=== PATIENT | female | born 1955 | race Caucasian/White ===

== ENCOUNTER 2024-06-26 09:42 | Outpatient (CLI) | payer MEDICARE, OTHER, SELFPAY ==
--- NOTE | ~2024-06-26 | CT_ITS ---
EXAMINATION:CT lung screening DATE: 06/26/2024 10:11 INDICATION: Nicotine dependence. TECHNIQUE: Computed tomography (CT) of the chest was performed without intravenous contrast. Automate d exposure control and iterative reconstruction technique were employed. The dose-length product (DLP ) was 63.13 mGy-cm. COMPARISON: Chest CT 06/19/2023 FINDINGS: There is mild emphysema. There is stable mild scarring at the lung apices. There is a 2 mm nodule in left upper lobe. There is mild atelectasis bilaterally. No pleural effusion. The heart size is normal. There are coronary artery calcifications. No pericardial effusion. There are stones in th e kidneys measuring up to 3 mm. There is thoracic kyphosis and mild spondylosis. There is mild chroni c anterior wedging of multiple thoracic vertebral bodies. IMPRESSION: 1. Lung-RADS category 2: Benign appearance or behavior. Continue annual screening with noncontrast lo w-dose chest CT in 12 months. Reviewed, dictated and finalized at location A. IMPRESSION: 1. Lung-RADS category 2: Benign appearance or behavior. Continue annual screeni ng with noncontrast low-dose chest CT in 12 months.
--- OUTSIDE RECORDS SUMMARY | 2024-06-26 10:44 | XMS_ITS | Encounter Summary ---
Author Organization [facility] Address 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
--- OUTSIDE RECORDS SUMMARY | 2024-06-26 10:44 | XMS_ITS | Encounter Summary ---
Author Organization [employer] Address 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
--- OUTSIDE RECORDS SUMMARY | 2024-06-26 10:45 | XMS_ITS | Encounter Summary ---
Author Organization [employer] Address 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
--- OUTSIDE RECORDS SUMMARY | 2024-06-26 10:45 | XMS_ITS | Encounter Summary ---
Author Organization [facility] Address 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 Gender Identity Not on file Sexual Orientation Not on file documented as of this encounter Plan of Treatment Not on file documented as of this encounter Procedures Procedure Name Priority Date/Time Associated Diagnosis Comments MAMMO SCREENING BILAT Routine 01/16/2008 3:54 PM CDT documented in this encounter Results * MAMMO SCREENING BILAT (01/16/2008 3:54 PM CDT) Anatomical Region Laterality Modality Breast Bilateral Other 01/16/2008 3:54 PM CDT Narrative 01/19/2008 2:50 PM CDT [address] [place], [place] [address] Admit Date: 01/16/2008 CHERRI KWOK Sex: F Admit Prov: ANEL, GUMARO Date: 1955 Primary Care Prov: GUMARO TELLO CMRN: [id number] Room: [facility] SSN: [id number] IMAGING SERVICES Ordering Prov: GUMARO TELLO Accession Number: [id number] Interpretation BILATERAL SCREENING MAMMOGRAM 01/16/2008 Reason for Examination: Routine screening study. Findings: The parenchyma is moderately dense bilaterally. There is no mass, malignant calcification, lymphadenopathy or other sign of malignancy. There has been no change since 12/2005. Summary: No mammographic evidence of malignancy. Overall assessment: BIRADS category 1 - Negative. Assessment BIRADS: 1-Negative Recommendation: Normal interval follow-up Dictated by: REG GILMORE Electronically signed by: REG GILMORE 01/19/2008 14:50 Transcribed: 01/19/2008 14:25 SDJ Procedure Note Reg Gilmore MD - 01/19/2008 [facility] [address] [place], [place] [address] Admit Date: 01/16/2008 CHERRI KWOK Sex: F Admit Prov: GUMARO TELLO Date:1955 Primary Care Prov: NALLELY TELLOORES CMRN: [id number] Room: [facility] SSN: [id number] IMAGING SERVICES Ordering Prov: GMUARO TELLO Interpretation BILATERAL SCREENING MAMMOGRAM 01/16/2008 Reason for Examination: Routine screening study. Findings: The parenchyma is moderately dense bilaterally. There isno mass, malignant calcification, lymphadenopathy or other sign ofmalignancy. There has been no change since 12/2005. Summary: No mammographic evidence of malignancy. Overall assessment: BIRADS category 1 - Negative. Assessment BIRADS: 1-Negative Recommendation: Normal interval follow-up Dictated by: REG GILMORE Electronically signed by: REG GILMORE 01/19/2008 14:50 Transcribed: 01/19/2008 14:25 SDJ Gumaro Tello MD MAMMO ORDERABLES Final Resul t documented in this encounter Visit Diagnoses Diagnosis Other screening mammogram documented in this encounter Care Teams Jitterbug Operator Relationship Specialty Start Date End Date Gumaro Tello MD [address] [phone] PCP - General 03/18/15 documented as of this encounter
--- OUTSIDE RECORDS SUMMARY | 2024-06-26 10:45 | XMS_ITS | Data Portability ---
Author Organization [place] [facility], Main Office Address [address] [place] [address] Care Team Providers Care Market Developer Name Role Phone LUIS F OSBORN Primary Care Provider [phone] Assessment Encounter Date Assessment Date Assessment LastModified by Organization Details LastModified Time 07/16/2023 07/16/2023 68 yo F with - HTN - HLD - ANXIETY - GOITER - KYPHOSIS - SMOKER - H/O HYPERCALCEMIA LDCT chest: 06/19/23. Annual labs: 06/12/23. LDCT chest: 06/06/22. US thyroid: 06/06/22. Annual labs: 05/29/22. D/w pt in detail about her conditions, recent labs & imagines and further plan of care. MAWV questionnaire reviewed with pt. Answered all questions and concerns for the pt. Fall risk precautions explained. All meds verified with pt. Meds as directed. Diet and exercise explained in detail. BP diary education given and call us if any concerns. Encouraged pt to cut down and quit smoking. F/u with counsellor as per schedule. Cont f/u with GI as per schedule. Cont f/u with Ophtho as per schedule. Educated pt about alarming symptoms to monitor at home. Pt has tried Chantix and Wellbutrin in the past and got s/e from it. Pt did not like Setraline. HM: WWE - 8 yrs ago. Normal as per pt. Pt declined. Mammo - 03/07/23, normal. Colonoscopy - 2020, polyps ++. Cont f/u with GI as per schedule (5 yrs). DEXA - 07/12/22, osteoporosis ++. Flu - 12/22. Tdap - Pt declined. Pneumo - 12/19. Shingrix - At pharmacy/HD. F/u in 3-4 months. Annual labs, LDCT chest in 06/23. [email or web address] Not available 07/16/2023 15:53:56 10/15/2023 10/15/2023 68 yo F with - HTN - HLD - ANXIETY - GOITER - KYPHOSIS - SMOKER - H/O HYPERCALCEMIA LDCT chest: 06/19/23. Annual labs: 06/12/23. LDCT chest: 06/06/22. US thyroid: 06/06/22. Annual labs: 05/29/22. D/w pt in detail about her conditions, recent labs & imagines and further plan of care. [place] refer [place]mo[place] All meds verified with pt. Meds as directed. Diet and exercise explained in detail. BP diary education given and call us if any concerns. Encouraged pt to cut down and quit smoking. F/u with Pulmo as per schedule. F/u with counsellor as per schedule. Cont f/u with GI as per schedule. Cont f/u with Ophtho as per schedule. Educated pt about alarming symptoms to monitor at home. Pt has tried Chantix and Wellbutrin in the past and got s/e from it. Pt did not like Setraline. HM: WWE - 8 yrs ago. Normal as per pt. Pt declined. Mammo - 03/07/23, normal. Colonoscopy - 2020, polyps ++. Cont f/u with GI as per schedule (5 yrs). DEXA - 07/12/22, osteoporosis ++. Flu - 12/22. Tdap - Pt declined. Pneumo - 12/19. Shingrix - At pharmacy/HD. F/u in 3-4 months. Annual labs, LDCT chest in 06/23. [email or web address] Not available 10/15/2023 15:49:30 01/29/2024 01/29/2024 69 yo F with - HTN - HLD - ANXIETY - GOITER - KYPHOSIS - SMOKER - H/O HYPERCALCEMIA LDCT chest: 06/19/23. Annual labs: 06/12/23. LDCT chest: 06/06/22. US thyroid: 06/06/22. Annual labs: 05/29/22. D/w pt in detail about her conditions, recent labs & imagines and further [place] of care. [place] All meds verified with pt. Meds as directed. Diet and exercise explained in detail. BP diary education given and call us if any concerns. Encouraged pt to cut down and quit smoking. F/u with Pulmo as per schedule. F/u with counsellor as per schedule. Cont f/u with GI as per schedule. Cont f/u with Ophtho as per schedule. Educated pt about alarming symptoms to monitor at home. Pt has tried Chantix and Wellbutrin in the past and got s/e from it. Pt did not like Setraline. HM: WWE - 8 yrs ago. Normal as per pt. Pt declined. Mammo - 03/07/23, normal. Colonoscopy - 2020, polyps ++. Cont f/u with GI as per schedule (5 yrs). DEXA - 07/12/22, osteoporosis ++. Flu - Pt gets at pharmacy. Tdap - 2022. Pneumo - 12/19. Shingrix - At pharmacy/HD. F/u in 3-4 months. Annual labs, LDCT chest in 06/23. [email or web address] Not available 01/29/2024 12:10:29 04/30/2024 04/30/2024 69 yo F with - HTN, uncontrolled - HLD - ANXIETY - GOITER - KYPHOSIS - SMOKER - H/O HYPERCALCEMIA LDCT chest: 06/19/23. Annual labs: 06/12/23. LDCT chest: 06/06/22. US thyroid: 06/06/22. Annual labs: 05/29/22. D/w pt in detail about her conditions, recent labs & imagines and further [place] of care. [place] All meds verified with pt. Meds as directed. Diet and exercise explained in detail. BP diary education given and call us if any concerns. Encouraged pt to cut down and quit smoking. F/u with Pulmo as per schedule. F/u with counsellor as per schedule. Cont f/u with GI as per schedule. Cont f/u with Ophtho as per schedule. Educated pt about alarming symptoms to monitor at home. Pt has tried Wellbutrin in the past and got s/e from it. Pt did not like Sertraline. HM: WWE - 8 yrs ago. Normal as per pt. Pt declined. Mammo - 03/07/23, normal. Colonoscopy - 2020, polyps ++. Cont f/u with GI as per schedule (5 yrs). DEXA - 07/12/22, osteoporosis ++. Flu - Pt gets at pharmacy. Tdap - 2022. Pneumo - 12/19. Shingrix - At pharmacy/HD. F/u in 1.5 months. Annual labs, LDCT chest in 06/23. [email or web address] Not available 04/30/2024 12:32:44 06/16/2024 06/16/2024 69 yo F with - WELL ADULT VISIT - HTN, uncontrolled - HLD - ANXIETY - GOITER - KYPHOSIS - SMOKER - H/O HYPERCALCEMIA CT head wo: 05/24/24. LDCT chest: 06/19/23. Annual labs: 06/12/23. LDCT chest: 06/06/22. US thyroid: 06/06/22. Annual labs: 05/29/22. D/w pt in detail about her conditions, recent labs & imagines and further plan of care. Will do routine labs, LDCT chest. Will refer pt to Cardio. [place]. All meds verified with pt. Meds as directed. Diet and exercise explained in detail. BP diary education given and call us if any concerns. Encouraged pt to cut down and quit smoking. Educated pt about alarming symptoms to monitor at home. F/u with Cardio as per schedule. F/u with Pulmo as per schedule. F/u with counsellor as per schedule. Cont f/u with GI as per schedule. Cont f/u with Ophtho as per schedule. Offered to refer to Psych; but pt declined. Pt has tried Wellbutrin in the past and got s/e from it. Pt did not like Sertraline, Escitalopram. HM: WWE - 8 yrs ago. Normal as per pt. Pt declined. Mammo - 03/07/23, normal. Ordered. Colonoscopy - 2020, polyps ++. Cont f/u with GI as per schedule (5 yrs). DEXA - 07/12/22, osteoporosis ++. Flu - Pt gets at pharmacy. Tdap - 2022. Pneumo - 12/19. Shingrix - At pharmacy/HD. F/u in 2-3 weeks. Annual labs, LDCT chest in 06/24. [email or web address] Not available 06/16/2024 11:50:28 Plan of Treatment Reminders Order Date Submit Date Provider Last Modified By Organization Details Last Modified Time Details Appointments Any 15 2024 10:30A M Luis F Osborn MD Not available Not available Not available Lab HbA1c (hemoglob in A1c), blood 2024 025 [employer] [facility], [address], [address], [place], [address], 06/20/2024 00:35:02 CBC w/ auto diff 2024 025 [employer] [facility], [address], [place], [address], 06/20/2024 00:34:56 CMP, serum or plasma 2024 025 [employer] [facility], [facility] [address], [address], [place], [address], 06/20/2024 00:34:55 urinalysi s complete, reflex culture 2024 025 [employer] [facility], [facility] [address], [address], [place], [address], 06/20/2024 00:34:57 vitamin B12 + folate, serum or blood 2024 025 [employer] [facility], [facility] [address], [address], [place], [address], 06/20/2024 00:34:59 lipid panel, serum 2024 025 [employer] [facility], [address], [address], [place], [address], 06/20/2024 00:34:53 TSH, serum, reflex free T4 2024 025 [employer] [facility], [address], [address], [place], [address], 06/16/2024 11:37:02 vitamin D, 25-hydrox y, total, serum 2024 025 [employer] [facility], [address], [address], [place], [address], 06/20/2024 00:35:01 Referral cardiolog ist referral - Please call patient to schedule an appointme nt. Thank you 2024 025 [facility], [address], [address], [place], [address], 06/22/2024 16:45:28 [email or web address] gist referral - Please call patient to schedule an appointme nt. Thank you 2023 024 [email or web address] Ryan Lee MD, [address] [place], [address], 11/12/2023 08:33:38 Procedures None recorded. Surgeries None recorded. Imaging MAMMO, screening , bilateral 2024 025 [email or web address] [facility], [address], [place], [address], 06/16/2024 12:23:03 LDCT, chest, for lung cancer screening - Please call patient to schedule. 2024 025 [facility] ([facility]), [address] [place], [address], 06/16/2024 15:25:20 Medication Orders alendrona te 70 mg tablet 2024 025 [facility] #05160, [address], [place], [id number], 06/16/2024 11:36:37 lisinopri l 40 mg tablet 2024 025 [facility] #04974, [address], [place], [place], [id number], 06/16/2024 11:36:55 metoprolo l succinate ER 50 mg tablet,ex tended release 24 hr 2024 [email or web address] [facility] #87845, [address], [place], [place], [id number], 06/16/2024 11:36:42 clonidine HCl 0.1 mg tablet 2024 [facility] #93928, [address], [place], [place], [id number], 06/16/2024 11:36:36 atorvasta tin 40 mg tablet 2024 [facility] #59011, [address], [place], [place], [id number], 06/16/2024 11:36:54 varenicli ne tartrate 1 mg tablet 2024 025 [facility] #58455, [address], [place], [place], [id number], 06/16/2024 11:49:40 alendrona te 70 mg tablet 2024 025 [facility] #15638, [address], [place], [place], [id number], 04/30/2024 12:14:48 lisinopri l 40 mg tablet 2024 025 [facility] #33891, [address], [place], [place], [id number], 04/30/2024 12:14:56 metoprolo l succinate ER 50 mg tablet,ex tended release 24 hr 2024 025 [facility] #79969, [address], [place], [place], [id number], 04/30/2024 12:15:06 varenicli ne tartrate 0.5 mg tablet 2024 [facility] #70371, [address], [place], [place], [id number], 04/30/2024 12:14:54 lorazepam 0.5 mg tablet 2024 [facility] #80667, [address], [place], [place], [id number], 04/30/2024 12:15:15 bupropion HCl XL 150 mg 24 hr tablet, extended release [email or web address] [facility] #68318, [address], [place], [place], [id number], 06/16/2024 11:48:52 atorvasta tin 40 mg tablet 2024 [facility] #21324, [address], [place], [place], [id number], 04/30/2024 12:14:52 alendrona te 70 mg tablet 2023 024 [facility] #33419, [address], [place], [place], [id number], 01/29/2024 12:11:50 lisinopri l 40 mg tablet 2023 024 [facility] #62599, [address], [place], [place], [id number], 01/29/2024 12:11:58 metoprolo l succinate ER 25 mg tablet,ex tended release 24 hr [address] [facility] #72919, [address], [place], [place], [id number], 04/30/2024 12:18:04 varenicli ne tartrate 0.5 mg tablet 2023 024 [facility] #26536, [address], [place], [place], [id number], 01/29/2024 12:11:51 lorazepam 0.5 mg tablet 2023 [facility] #57621, [address], [place], [place], [id number], 01/29/2024 12:11:58 bupropion HCl XL 150 mg 24 hr tablet, extended release [address] [facility] #54502, [address], [place], [place], [id number], 06/16/2024 11:48:52 atorvasta tin 40 mg tablet 2023 024 [facility] #58278, [address], [place], [place], [id number], 01/29/2024 12:11:55 alendrona te 70 mg tablet 2023 024 [facility] #37667, [address], [place], [place], [id number], 10/15/2023 15:37:11 lisinopri l 40 mg tablet [address] [facility] #50077, [address], [place], [place], [id number], 10/15/2023 15:39:06 metoprolo l succinate ER 25 mg tablet,ex tended release 24 hr [address] [facility] #59790, [address], [place], [place], [id number], 04/30/2024 12:18:04 lorazepam 0.5 mg tablet 2023 [facility] #40993, [address], [place], [place], [id number], 10/15/2023 15:37:15 bupropion HCl XL 150 mg 24 hr tablet, extended release [address] [facility] #66288, [address], [place], [place], [id number], 06/16/2024 11:48:52 atorvasta tin 40 mg tablet 2023 [facility] #26626, [address], [place], [place], [id number], 10/15/2023 15:37:19 alendrona te 70 mg tablet 2023 [facility] #27764, [address], [place], [place], [id number], 07/16/2023 15:45:14 lisinopri l 40 mg tablet 2023 [facility] #68987, [address], [place], [place], [id number], 07/16/2023 15:46:01 metoprolo l succinate ER 25 mg tablet,ex tended release 24 hr [address] [facility] #80302, [address], [place], [place], [id number], 04/30/2024 12:18:04 escitalop belinda 5 mg tablet [address] [facility] #63629, [address], [place], [place], [id number], 06/16/2024 11:48:55 lorazepam 0.5 mg tablet 2023 024 [facility] #38428, [address], [place], [id number], 07/16/2023 15:47:40 atorvasta tin 40 mg tablet 2023 024 [facility] #82358, [address], [place], [place], [id number], 07/16/2023 15:45:16 Patient TargetsNo targets recorded. Patient Instructions Encounter Date Encounter Id Patient Instructions Last Modified By Organization Details Last Modified Time 07/16/2023 [id number] dementia rating scale-2* Not available 07/16/2023 16:00:17 depression screening* Not available 07/16/2023 16:00:59 alcohol misuse* Not available 07/16/2023 16:01:32 Personalized [facility] lt Plan and Screening Recommendations Advance Directives - Do you have one? Yes Advance Directives - Do we have your advance directive on file in your health record? Primary Prevention/Interven tion (prevents or decreases the chance of common diseases from occurring) Smoking Risk: Smoker Refer to attached smoking cessation handouts Refer to attached handouts and prescription will be sent to pharmacy Continue to consider stopping smoking and call if we can assist you Alcohol Misuse Screening: Negative Weight: Appropriate continue your current weight loss efforts Physical activity: Need more exercise/physical activity minimum of 10-20 minutes of activity that causes mild breathlessness/day minimum of 20-30 minutes activity that causes mild breathlessness/day Nutrition: Good Average Fall Risk (screened today): Low Vaccines Pneumococcal: Ordered Recommended today Recommended today, but you have declined No further needed Influenza: Your next one in the fall of this year Chronic Disease Risks Stroke: Low Risk Intermediate Risk I have no recommendations Act kelsey diagnosis, Continue current treatment plan Heart Attack: Low risk Intermediate Risk I have no recommendations Act kelsey diagnosis, Continue current treatment plan Clogging of the Arteries: Low risk Intermediate Risk I have no recommendations Act kelsey diagnosis, Continue current treatment plan Diabetes: Low Risk I have no recommendations Secondary Prevention/Interven tion (detects treatable diseases before they may cause symptoms, disability, or ) Breast Cancer Screening with mammogram: Cervical/Uterine/Ov renu Cancer Screening: No screening necessary Osteoporosis Screening: No screening necessary Date Screening Last Performed: 07/12/22 Colon Cancer Screening: Colonoscopy Date Screening Last Performed: 2020 Eye Disease Screening: No Eye exam necessary Dementia Risk: Low I have no recommendations Depression Screening: Negative Not available 07/16/2023 16:05:28 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 Thank you Referring Physician: Luis F Osborn [facility] Medicine, Encounter Date: 10/15/2023 Group Captain Referral for Hy pertensive disorder FH of CVD ++, uncontrolled HTN Please call patient to schedule an appointment. Thank you Referring Physician: Luis F Osborn [facility] Medicine, Encounter Date: 06/16/2024 Results Created Date Observation Date Name Description Value Unit Range Abnormal Flag Note LastModifiedBy Organization Detail LastModifiedTime 06/19/1906/19/2024 LIPID PANEL , STAND SPENCER cholesterol, total 139 mg/dL <200 normal Not Available [employer] [address] [address] [place], [address], 06/20/2024 00:34:53 06/19/19 25 06/19/2024 LIPID PANEL , STAND SPENCER HDL cholesterol 52 mg/dL > or = 50 normal Not Available [facility] [address] [address] [place], [address], 06/20/2024 00:34:53 06/19/19 25 06/19/2024 LIPID PANEL , STAND SPENCER triglyceride s 73 mg/dL <150 normal Not Available [employer] [address] [address] [place], [address], 06/20/2024 00:34:53 06/19/19 25 06/19/2024 LIPID PANEL , STAND SPENCER LDL-choleste rol 72 mg/dL _(mila c) normal Refer ence range : <100 Catarino able range <100 mg/dL for prima ry preve ntion ; <70 mg/dL for patie nts with CHD or diabe tic patie nts with > or = 2 CHD risk facto rs. LDL-C is now calcu lated using the Raquel n-Hop kins calcu esauomari n, which is a valid ated novel metho d provi ding leonela r accur acy than the Fried li equat ion in the estim ation of LDL-C . Raquel chang SS et al. MELANIE. 2013; 310(1 9): 2061- 2068 (http ://ed ucati on.Qu [employer]. com/f aq/FA Q164) Not Available [employer] [address] [address] [place], [address], 06/20/2024 00:34:53 06/19/19 25 06/19/2024 LIPID PANEL , STAND SPENCER chol/HDLC ratio 2.7 (calc ) <5.0 normal Not Available [facility] [address] [address] [place], [address], 06/20/2024 00:34:53 06/19/19 25 06/19/2024 LIPID PANEL , STAND SPENCER non HDL cholesterol 87 mg/dL _(mila c) <130 normal For patie nts with diabe kristine plus 1 major ASCVD risk facto r, treat ing to a non-H DL-C goal of <100 mg/dL (LDL- C of <70 mg/dL ) is consi dered a thera peutkika c optio n. Not Available [facility] [address] [address] [place], [address], 06/20/2024 00:34:53 06/19/19 25 06/19/2024 COMPR EHENS KELSEY METAB OLIC PANEL glucose 91 mg/dL 65-99 normal Fasti ng refer ence inter lucille Not Available [facility] [address] [address] [place], [address], 06/20/2024 00:34:55 06/19/19 25 06/19/2024 COMPR EHENS KELSEY METAB OLIC PANEL urea nitrogen (BUN) 18 mg/dL 7-25 normal Not Available [address], [address], 06/20/2024 00:34:55 06/19/19 25 06/19/2024 COMPR EHENS KELSEY METAB OLIC PANEL creatinine 0.94 mg/dL 0.60-1 .00 normal Not Available [address], [address], 06/20/2024 00:34:55 06/19/19 25 06/19/2024 COMPR EHENS KELSEY METAB OLIC PANEL eGFR 65 mL/mi n/1.7 3m2 > or = 60 normal Not Available [address], [address], 06/20/2024 00:34:55 06/19/19 25 06/19/2024 COMPR EHENS KELSEY METAB OLIC PANEL BUN/creatini ne ratio SEE NOTE: (calc ) 6-22 Not Repor sadiq: BUN and Creat inine are withi n refer ence range . Not Available [address], [address], 06/20/2024 00:34:55 06/19/19 25 06/19/2024 COMPR EHENS KELSEY METAB OLIC PANEL sodium 138 mmol/ L 135-14 6 normal Not Available [address], [address], 06/20/2024 00:34:55 06/19/19 25 06/19/2024 COMPR EHENS KELSEY METAB OLIC PANEL potassium 4.4 mmol/ L 3.5-5. 3 normal Not Available [address], [address], 06/20/2024 00:34:55 06/19/19 25 06/19/2024 COMPR EHENS KELSEY METAB OLIC PANEL chloride 103 mmol/ L 98-110 normal Not Available [address], [address], 06/20/2024 00:34:55 06/19/19 25 06/19/2024 COMPR EHENS KELSEY METAB OLIC PANEL carbon dioxide 29 mmol/ L 20-32 normal Not Available [address], [address], 06/20/2024 00:34:55 06/19/19 25 06/19/2024 COMPR EHENS KELSEY METAB OLIC PANEL calcium 10.4 mg/dL 8.6-10 .4 normal Not Available [address], [address], 06/20/2024 00:34:55 06/19/19 25 06/19/2024 COMPR EHENS KELSEY METAB OLIC PANEL protein, total 6.6 g/dL 6.1-8. 1 normal Not Available [address], [address], 06/20/2024 00:34:55 06/19/19 25 06/19/2024 COMPR EHENS KELSEY METAB OLIC PANEL albumin 4.3 g/dL 3.6-5. 1 normal Not Available [address], [address], 06/20/2024 00:34:55 06/19/19 25 06/19/2024 COMPR EHENS KELSEY METAB OLIC PANEL globulin 2.3 g/dL_ (calc ) 1.9-3. 7 normal Not Available [address], [address], 06/20/2024 00:34:55 06/19/19 25 06/19/2024 COMPR EHENS KELSEY METAB OLIC PANEL albumin/glob ulin ratio 1.9 (calc ) 1.0-2. 5 normal Not Available [address], [address], 06/20/2024 00:34:55 06/19/19 25 06/19/2024 COMPR EHENS KELSEY METAB OLIC PANEL bilirubin, total 0.6 mg/dL 0.2-1. 2 normal Not Available [address], [address], 06/20/2024 00:34:55 06/19/19 25 06/19/2024 COMPR EHENS KELSEY METAB OLIC PANEL alkaline phosphatase 66 U/L 37-153 normal Not Available [facility] [employer] [address], [address], 06/20/2024 00:34:55 06/19/19 25 06/19/2024 COMPR EHENS KELSEY METAB OLIC PANEL AST 24 U/L 10-35 normal Not Available [address], [address], 06/20/2024 00:34:55 06/19/19 25 06/19/2024 COMPR EHENS KELSEY METAB OLIC PANEL ALT 24 U/L 6-29 normal Not Available [address], [address], 06/20/2024 00:34:55 06/19/19 25 06/19/2024 CBC (INCL UDES DIFF/ PLT) white blood cell count 8.2 thous and/u L 3.8-10 .8 normal Not Available [address], [address], 06/20/2024 00:34:56 06/19/19 25 06/19/2024 CBC (INCL UDES DIFF/ PLT) red blood cell count 4.72 ana on/uL 3.80-5 .10 normal Not Available [address], [address], 06/20/2024 00:34:56 06/19/19 25 06/19/2024 CBC (INCL UDES DIFF/ PLT) hemoglobin 14.7 g/dL 11.7-1 5.5 normal Not Available [address], [address], 06/20/2024 00:34:56 06/19/19 25 06/19/2024 CBC (INCL UDES DIFF/ PLT) hematocrit 44.0 % 35.0-4 5.0 normal Not Available [address], [address], 06/20/2024 00:34:56 06/19/19 25 06/19/2024 CBC (INCL UDES DIFF/ PLT) MCV 93.2 fL 80.0-1 00.0 normal Not Available [address], [address], 06/20/2024 00:34:56 06/19/19 25 06/19/2024 CBC (INCL UDES DIFF/ PLT) MCH 31.1 pg 27.0-3 3.0 normal Not Available [address], [address], 06/20/2024 00:34:56 06/19/19 25 06/19/2024 CBC (INCL UDES DIFF/ PLT) MCHC 33.4 g/dL 32.0-3 6.0 normal For adult s, a sligh t decre ase in the calcu lated MCHC value (in the range of 30 to 32 g/dL) is most likel y not clini serena signi fican t; anne-marie er, it shoul d be inter prete d with cauti on in corre latio n with other red cell katherine eters and the patie nt's clini mila condi tion. Not Available [address], [address], 06/20/2024 00:34:56 06/19/19 25 06/19/2024 CBC (INCL UDES DIFF/ PLT) RDW 13.1 % 11.0-1 5.0 normal Not Available [address], [address], 06/20/2024 00:34:56 06/19/19 25 06/19/2024 CBC (INCL UDES DIFF/ PLT) platelet count 212 thous and/u L 140-40 0 normal Not Available [address], [address], 06/20/2024 00:34:56 06/19/19 25 06/19/2024 CBC (INCL UDES DIFF/ PLT) MPV 11.8 fL 7.5-12 .5 normal Not Available [address], [address], 06/20/2024 00:34:56 06/19/19 25 06/19/2024 CBC (INCL UDES DIFF/ PLT) absolute neutrophils 4305 cells /uL 1500-7 800 normal Not Available [address], [address], 06/20/2024 00:34:56 06/19/19 25 06/19/2024 CBC (INCL UDES DIFF/ PLT) absolute lymphocytes 2960 cells /uL 850-39 00 normal Not Available [address], [address], 06/20/2024 00:34:56 06/19/19 25 06/19/2024 CBC (INCL UDES DIFF/ PLT) absolute monocytes 779 cells /uL 200-95 0 normal Not Available [address], [address], 06/20/2024 00:34:56 06/19/19 25 06/19/2024 CBC (INCL UDES DIFF/ PLT) absolute eosinophils 82 cells /uL 15-500 normal Not Available [address], [address], 06/20/2024 00:34:56 06/19/19 25 06/19/2024 CBC (INCL UDES DIFF/ PLT) absolute basophils 74 cells /uL 0-200 normal Not Available [address], [address], 06/20/2024 00:34:56 06/19/19 25 06/19/2024 CBC (INCL UDES DIFF/ PLT) neutrophils 52.5 % normal Not Available [address], [address], 06/20/2024 00:34:56 06/19/19 25 06/19/2024 CBC (INCL UDES DIFF/ PLT) lymphocytes 36.1 % normal Not Available [address], [address], 06/20/2024 00:34:56 06/19/19 25 06/19/2024 CBC (INCL UDES DIFF/ PLT) monocytes 9.5 % normal Not Available [address], [address], 06/20/2024 00:34:56 06/19/19 25 06/19/2024 CBC (INCL UDES DIFF/ PLT) eosinophils 1.0 % normal Not Available [address], [address], 06/20/2024 00:34:56 06/19/19 25 06/19/2024 CBC (INCL UDES DIFF/ PLT) basophils 0.9 % normal Not Available [address], [address], 06/20/2024 00:34:56 06/19/19 25 06/19/2024 URINA LYSIS , COMPL ETE W/REF LUC TO CULTU RE color DARK YELLOW yellow normal Not Available [address], [address], 06/20/2024 00:34:57 06/19/19 25 06/19/2024 URINA LYSIS , COMPL ETE W/REF LUC TO CULTU RE appearance CLEAR clear normal Not Available [address], [address], 06/20/2024 00:34:57 06/19/19 25 06/19/2024 URINA LYSIS , COMPL ETE W/REF LUC TO CULTU RE specific gravity 1.019 1.001- 1.035 normal Not Available [address], [address], 06/20/2024 00:34:57 06/19/19 25 06/19/2024 URINA LYSIS , COMPL ETE W/REF LUC TO CULTU RE pH 5.5 5.0-8. 0 normal Not Available [address], [address], 06/20/2024 00:34:57 06/19/19 25 06/19/2024 URINA LYSIS , COMPL ETE W/REF LUC TO CULTU RE glucose NEGATI VE negati ve normal Not Available [address], [address], 06/20/2024 00:34:57 06/19/19 25 06/19/2024 URINA LYSIS , COMPL ETE W/REF LUC TO CULTU RE bilirubin NEGATI VE negati ve normal Not Available [address], [address], 06/20/2024 00:34:57 06/19/19 25 06/19/2024 URINA LYSIS , COMPL ETE W/REF LUC TO CULTU RE ketones TRACE negati ve abnormal Not Available [address], [address], 06/20/2024 00:34:57 06/19/19 25 06/19/2024 URINA LYSIS , COMPL ETE W/REF LUC TO CULTU RE occult blood TRACE negati ve abnormal Not Available [address], [address], 06/20/2024 00:34:57 06/19/19 25 06/19/2024 URINA LYSIS , COMPL ETE W/REF LUC TO CULTU RE protein NEGATI VE negati ve normal Not Available [address], [address], 06/20/2024 00:34:57 06/19/19 25 06/19/2024 URINA LYSIS , COMPL ETE W/REF LUC TO CULTU RE nitrite NEGATI VE negati ve normal Not Available [address], [address], 06/20/2024 00:34:57 06/19/19 25 06/19/2024 URINA LYSIS , COMPL ETE W/REF LUC TO CULTU RE leukocyte esterase 1+ negati ve abnormal Not Available [address], [address], 06/20/2024 00:34:57 06/19/19 25 06/19/2024 URINA LYSIS , COMPL ETE W/REF LUC TO CULTU RE WBC NONE SEEN /hpf < or = 5 normal Not Available [address], [address], 06/20/2024 00:34:57 06/19/19 25 06/19/2024 URINA LYSIS , COMPL ETE W/REF LUC TO CULTU RE RBC 3-10 /hpf < or = 2 abnormal Not Available [address], [address], 06/20/2024 00:34:57 06/19/19 25 06/19/2024 URINA LYSIS , COMPL ETE W/REF LUC TO CULTU RE squamous epithelial cells 0-5 /hpf < or = 5 Not Available [address], [address], 06/20/2024 00:34:57 06/19/19 25 06/19/2024 URINA LYSIS , COMPL ETE W/REF LUC TO CULTU RE bacteria NONE SEEN /hpf none seen normal Not Available [facility] [address], [address], 06/20/2024 00:34:57 06/19/19 25 06/19/2024 URINA LYSIS , COMPL ETE W/REF LUC TO CULTU RE hyaline cast 0-5 /lpf none seen abnormal Not Available [facility] [address], [address], 06/20/2024 00:34:57 06/19/19 25 06/19/2024 URINA LYSIS , COMPL ETE W/REF LUC TO CULTU RE note This urine was jacques zed for the prese nce of WBC, RBC, bacte gail, casts , and other forme d eleme nts. Only those eleme nts seen were repor sadiq. Not Available [address], [address], 06/20/2024 00:34:57 06/19/19 25 06/19/2024 REFLE XIVE URINE CULTU RE reflexive urine culture CULTU RE INDIC ATED - RESUL TS TO FOLLO W Not Available [address], [address], 06/20/2024 00:34:59 06/19/19 25 06/19/2024 VITAM IN B12/F OLATE , SERUM PANEL vitamin B12 330 pg/mL 200-11 00 normal Pleas e Note: Altho ugh the refer ence range for vitam in B12 is 200-1 100 pg/mL , it has been repor sadiq that betwe en 5 and 10% of patie nts with value s betwe en 200 and 400 pg/mL may exper ience neuro psych iatri c and hemat ologi c abnor malit ies due to occul t B12 defic iency ; less than 1% of patie nts with value s above 400 pg/mL will have sympt oms. Not Available [facility] [address] [place], [address], 06/20/2024 00:34:59 06/19/19 25 06/19/2024 VITAM IN B12/F OLATE , SERUM PANEL folate, serum 9.8 NG/mL normal Refer ence Range Low: <3.4 Borde rline : 3.4-5 .4 Oksana l: >5.4 Not Available [facility] [address] [place], [address], 06/20/2024 00:34:59 06/19/1906/19/2024 TSH W/REF LUC TO FT4 TSH w/reflex to FT4 2.34 mIU/L 0.40-4 .50 normal Not Available [facility] [address] [address] [place], [address], 06/20/2024 00:35:00 06/19/1906/19/2024 VITAM IN D,25- OH,TO JP,I A vitamin D,25-oh,tota l,ia 54 NG/mL 30-100 normal Vitam in D Statu s 25-OH Vitam in D: Defic iency : <20 ng/mL Insuf ficie ncy: 20 - 29 ng/mL Optim al: > or = 30 ng/mL For 25-OH Vitam in D testi ng on patie nts on D2-chavez pplem entat ion and patie nts for whom quant itati on of D2 and D3 fract ions is requi red, the [facility](TM ) 25-OH VIT D, (D2,D 3), LC/MS /MS is recom nilda d: order code 77259 (remi ents >2yrs ). See Note 1 Note 1 For addit ional infor lan lin refer to http: //ely Rya stDia gnost ics.c om/fa q/FAQ 199 (This link is being provi ded for infor jolie owrkman/ educa stanislav l purpo ses only. ) Not Available [facility] [address] [address] [address] , [place], [address], 06/20/2024 00:35:01 06/19/19 25 06/19/2024 HEMOG LOBIN A1C hemoglobin A1C 5.6 %_of_ total _HGB <5.7 normal For the purpo se of screandrew acostag for the prese nce of diabe kristine: <5.7% Consi stent with the absen ce of diabe kristine 5.7-6 .4% Consi stent with incre ased risk for diabe kristine (pred iabet es) > or =6.5% Consi stent with diabe kristine This assay resul t is consi stent with a decre ased risk of diabe kristine. Curre ntly, no conse nsus exist s regar gladys use of hemog lobin A1c for diagn osis of diabe kristine in child jaziel. Accor ding to Ameri can Diabe kristine Assoc iatio n (ADA) guide lines , hemog lobin A1c <7.0% repre sents optim al contr ol in non-p regna nt diabe tic patie nts. Diffe rent metri cs may apply to speci fic patie nt popul ation s. Stand ards of Medic al Care in Diabe kristine(A DA). Not Available [facility] [address] [address] [address], [place], [address], 06/20/2024 00:35:02 06/19/19 25 06/19/2024 CULTU RE, URINE , ROUTI NE culture, urine, routine SEE NOTE CULTU RE, URINE , ROUTI NE Micro Numbe r: [id number] Test Statu s: Final Speci men Sourc e: Urine Speci men Quali ty: Adequ ate Resul t: No Growt h Not Available [facility] [address], [place], [address], 06/20/2024 00:35:03 06/19/19 24 06/19/2023 LDCT, chest , for lung cance r scree estevan No observ ation record ed. [email or web address] [place] [address] [address], [place], [address], 07/16/2023 15:33:46 06/19/19 24 06/19/2023 LDCT, chest , for lung cance r scree estevan No observ ation record ed. [address], [place], [address], 07/16/2023 15:33:46 05/24/19 25 05/24/2024 imagi ng/di agnos tic resul t No observ ation record ed. [address], [place], [address], 06/16/2024 11:28:39 05/24/19 25 05/24/2024 CT, head, w/o contr ast No observ ation record ed. [address], [place], [address], 06/16/2024 11:28:39 Result Notes None recorded. Problems Name Problem SNOMED Code Status Onset Date Resolution Date Notes Provider Name and Address Organization Details Recorded Time Otalgia 02871406 Active Not Available [facility] 3 11:52:26 Anxiety disorder 442660312 Active 2022 Not Available [facility] 3 11:52:27 Localized, primary osteoarthr itis of the shoulder region 726528372 Active 2021 Not Available [facility] 3 11:52:27 Feeling stressed 820832131 Completed Not Available [facility] 3 05:58:14 Fluid level behind tympanic membrane Completed Not Available [facility] 3 05:58:14 Flank pain 607944678 Active Not Available [facility] 3 11:52:27 Osteopenia 861369109 Active 2017 Not Available [facility] 3 11:52:27 Blood in urine 49194302 Completed Not Available [facility] 3 05:58:14 Vitamin D deficiency 06268163 Active 2019 Not Available [facility] 3 11:52:27 Goiter 8600774 Active 2022 Not Available [facility] 3 11:52:27 Hypertensi ve disorder 07678002 Active Not Available [facility] 3 11:52:27 Anxiety 52935825 Active Not Available [facility] 3 11:52:27 Hyperlipid emia 95733232 Active Not Available [facility] 3 11:52:27 Hypercalce haydee 28522109 Active 2021 Not Available [facility] 3 11:52:27 Appendicit is 43013799 Completed Not Available [facility] 3 05:58:15 Posterior rhinorrhea 67937058 Active Not Available [facility] 3 11:52:27 Smoker 77994835 Active 2020 Not Available [facility] 3 11:52:27 Fatigue 86753973 Completed Not Available [facility] 3 05:58:15 Osteoporos is 77617115 Active 2022 Not Available [facility] 3 11:52:27 Pulmonary emphysema 02994844 Active 2023 Luis F Osborn MD [address], [place], [address] , [facility] 4 15:36:22 Cigarette smoker 33345652 Active 2024 Luis F Osborn MD [address], [place], [address] , [facility] 5 11:38:57 Problem Notes None recorded. Procedures Surgical History Date Name Laterality Status Provider Name and Address Organization Details Recorded Time 06/17/19 25 Smoking Cessation completed Luis F Osborn MD [address], [place], [address], [facility] 06/16/2024 11:51:04 04/30/19 25 Smoking Cessation completed Luis F Osborn MD [address], [place], [address], [facility] 04/30/2024 11:33:02 01/29/20 24 Smoking Cessation completed Luis F Osborn MD [address], [place], [address], [facility] 01/29/2024 12:42:03 10/15/19 24 Smoking Cessation completed Luis F Osborn MD [address], [address], [place], [address], [facility] 10/15/2023 15:35:49 07/16/19 24 Medicare Wellness CPT Code, Initial completed June HODAN An [place] [facility] 07/16/2023 15:04:30 01/31/20 23 Smoking Cessation completed Luis F Osborn MD [address], [address], [place], [address], [facility] 01/30/2023 10:49:10 08/31/19 23 Smoking Cessation completed Luis F Osborn MD [address], [place], [address], [facility] 08/30/2022 10:50:29 07/13/19 23 Smoking Cessation completed Luis F Osborn MD [address], [place], [address], [facility] 07/12/2022 15:05:43 04/01/19 21 Date of Last Colonoscopy completed Not Available [facility] 05/30/2022 05:53:22 Tubal Ligation completed Not Available [facility] 05/30/2022 05:53:24 Appendectomy completed Not Available [facility] 05/30/2022 05:53:24 Imaging Results Imaging Date Name Status LastModified by Organiz ation Details LastModified Time 06/19/2023 LDCT, chest, for lung cancer screening completed [address], [address], 07/16/2023 15:33:46 06/19/2023 LDCT, chest, for lung cancer screening completed [address], [place], [address], 07/16/2023 15:33:46 05/24/2024 imaging/diagno stic result completed [address], [place], [address], 06/16/2024 11:28:39 05/24/2024 CT, head, w/o contrast completed [address], [place], [address], 06/16/2024 11:28:39 Procedure Notes None recorded. Medical Equipment None Reported. Allergies No known drug allergies Medications Name Sig Start Date Stop Date Status Note LastModified by Organization Details LastModified Time atorvastati n 40 mg tablet Take 1 tablet every day by oral route at bedtime for 90 days. 2024 active Not Available Not Available Not Avai lable hydrocodone 7.5 mg-ibuprofe n 200 mg tablet active Not Available Not Available Not Available bupropion HCl SR 150 mg tablet,12 hr sustained-r elease Take 1 tablet twice a day by oral route for 90 days. active Not Available Not Available No t Available clonidine HCl 0.1 mg tablet Take 1 tablet twice a day by oral route as directed for 90 days. 2024 active Not Available Not Available Not Avai lable atorvastati n 20 mg tablet TAKE 1 TABLET BY MOUTH EVERY NIGHT AT BEDTIME 01/30 completed Not Available Not Available Not Available atorvastati n 10 mg tablet TK 1 T PO QD 10/11 completed Not Available Not Available Not Available lisinopril 20 mg-hydrochl orothiazide 12.5 mg tablet TK 1 T PO QAM active Not Available Not Available No t Available metoprolol succinate ER 50 mg tablet,exte nded release 24 hr Take 1 tablet every day by oral route as directed for 90 days. 2024 active Not Available Not Available Not Avai lable lisinopril 20 mg tablet TAKE 1 TABLET BY MOUTH EVERY DAY DIRECTED QAM 08/30 completed Not Available Not Available Not Available prednisone 20 mg tablet 08/11 completed Not Available Not Available Not Available alendronate 70 mg tablet Take 1 tablet every week by oral route as directed. 2024 active Not Available Not Available Not Avai lable amlodipine 5 mg tablet TAKE 1 TABLET BY MOUTH EVERY DAY 09/18 completed Not Available Not Available Not Available ciprofloxac in 500 mg tablet Take 1 tablet every 12 hours by oral route. active Not Available Not Available No t Available sulfamethox azole 800 mg-trimetho prim 160 mg tablet active Not Available Not Available Not Available peg-electro lyte solution 420 gram oral solution 10/11 completed Not Available Not Available Not Available amoxicillin 875 mg tablet TAKE 1 TABLET BY MOUTH EVERY 12 HOURS 03/01 completed Not Available Not Available Not Available lorazepam 0.5 mg tablet TAKE 1 TABLET BY MOUTH ONCE DAILY NEEDED active Not Available Not Available No t Available methocarbam ol 750 mg tablet Take 1 tablet every day by oral route at bedtime for 10 days. active Not Available Not Available No t Available lisinopril 10 mg tablet TAKE 1 TABLET BY MOUTH EVERY DAY 07/12 completed Not Available Not Available Not Available nicotine 21 mg/24 hr daily transdermal patch APPLY ONE PATCH TO SKIN ONCE DAILY FOR 90 DAYS 07/12 completed Not Available Not Available Not Available lisinopril 30 mg tablet TAKE 1 TABLET BY MOUTH EVERY DAY DIRECTED 01/30 completed Not Available Not Available Not Available lisinopril 20 mg-hydrochl orothiazide 25 mg tablet active Not Available Not Available Not Available metoprolol succinate ER 25 mg tablet,exte nded release 24 hr TAKE 1 TABLET BY MOUTH EVERY DAY AT BEDTIME 04/30 completed Not Available Not Available Not Available ergocalcife rol (vitamin D2) 1,250 mcg (50,000 unit) capsule TAKE 1 CAPSULE BY MOUTH EVERY WEEK active Not Available Not Available No t Available cefuroxime axetil 500 mg tablet 11/22 completed Not Available Not Available Not Available methylpredn isolone 4 mg tablets in a dose pack FOLLOW PACKAGE DIRECTION S 02/01 completed Not Available Not Available Not Available lisinopril 40 mg tablet Take 1 tablet every day by oral route as directed for 90 days. 2024 active Not Available Not Available Not Avai lable fluticasone propionate 50 mcg/actuati on nasal spray,suspe nsion INHALE 2 SPRAYS INTO EACH NOSTRIL QAM active Not Available Not Available No t Available sertraline 50 mg tablet Take 1 tablet every day by oral route in the morning for 90 days. 06/04 completed Not Available Not Available Not Available ipratropium bromide 21 mcg (0.03 %) nasal spray 10/11 completed Not Available Not Available Not Available amoxicillin 875 mg-potassiu m clavulanate 125 mg tablet 08/11 completed Not Available Not Available Not Available nicotine 7 mg/24 hr daily transdermal patch Apply 1 patch every day by transderm al route as directed for 30 days. 06/04 completed Not Available Not Available Not Available neomycin-po lymyxin-hyd rocort 3.5 mg-10,000 unit/mL-1 % ear drops,susp INSTILL 4 DROPS INTO AFFECTED EAR(S) BY OTIC ROUTE 3 TIMES PER DAY FOR 7 DAYS active Not Available Not Available No t Available escitalopra m 10 mg tablet Take 1 tablet every day by oral route as directed for 30 days. active Not Available Not Available No t Available bupropion HCl XL 150 mg 24 hr tablet, extended release Take 1 tablet every day by oral route as directed for 90 days. 06/16 completed Not Available Not Available Not Available escitalopra m 5 mg tablet Take 1 tablet every day by oral route in the morning for 90 days. 06/16 completed Not Available Not Available Not Available varenicline tartrate 1 mg tablet Take 1 tab po twice a day after food. 2024 active Not Available Not Available Not Avai lable varenicline tartrate 0.5 mg tablet TAKE 1 TABLET BY MOUTH TWICE DAILY DIRECTED active Not Available Not Available No t Available hydrochloro thiazide 12.5 mg tablet Take 1 tablet every day by oral route as directed for 90 days. active Not Available Not Available No t Available naproxen 500 mg-esomepra zole 20 mg tablet,imme diate and delay release TAKE 1 TABLET BY MOUTH TWICE DAILY WITH MEALS FOR 10 DAYS 10/11 completed Not Available Not Available Not Available Suprep Bowel Prep Kit 17.5 gram-3.13 gram-1.6 gram oral solution DILUTE AND DRINK FULL AMOUNT BY MOUTH EARLY EVENING BEFORE AND NEXT MORNING AT LEAST 2 HOURS BEFORE PROCEDURE . FOLLOW WITH 960 ML WATER 04/25 completed Not Available Not Available Not Available Fluvirin 7671-8670 (PF) 45 mcg(15 mcg x3)/0.5 mL intramuscul ar syringe ADM 0.5ML IM UTD 08/12 completed Not Available Not Available Not Available Flucelvax Quad (PF) 60 mcg (15 mcg x 4)/0.5 mL IM syringe ADM 0.5ML IM UTD 08/11 completed Not Available Not Available Not Available ID NOW COVID-19 Test Kit TEST DIRECTED 09/18 completed Not Available Not Available Not Available Vitals Date Recorded Body height Body mass index (BMI) Body weight Body temperature Heart rate Respiratory rate Oxygen saturation Oxygen saturation in Arterial blood by Pulse oximetry Systolic blood pressure Diastolic blood pressure Provider Name and Address Organization Details Last Updated DateTime 4 160.02 cm 20.7 kg/m2 28478.0 1 g 97.9 [degF] 78 /min 20 /min 99 % 99 % 128 mm[Hg] 70 mm[Hg] Jono Segovia [email or web address] [facility] 4 15:27:09 Date Recorded Pain severity - 0-10 verbal numeric rating [Score] - Reported Provider Name and Address Organization Details Last Updated DateTime 07/16/2023 0 June HODAN An [email or web address] [facility] 07/16/2023 15:56:12 Date Recorded Body height Body mass index (BMI) Body weight Body temperature Heart rate Respiratory rate Oxygen saturation Oxygen saturation in Arterial blood by Pulse oximetry Provider Name and Address Organization Details Last Updated DateTime 4 160.02 cm 21.8 kg/m2 21176.5 6 g 97.9 [degF] 78 /min 16 /min 99 % 99 % Jono Segovia [employer] [facility] 4 15:27:13 Date Recorded Systolic blood pressure Diastolic blood pressure Provider Name and Address Organization Details Last Updated DateTime 10/15/2023 136 mm[Hg] 80 mm[Hg] Luis F Osborn MD [address] [place] [address], [facility] [address], [place], [address], [place] [facility] 10/15/2023 15:28:33 Date Recorded Body height Body mass index (BMI) Body weight Body temperature Heart rate Provider Name and Address Organization Details Last Updated DateTime 01/29/2024 160.02 cm 21.7 kg/m2 94915.67 g 97.9 [degF] 62 /min Clary Martin RN [facility] 11:58:25 Date Recorded Oxygen saturation Oxygen saturation in Arterial blood by Pulse oximetry Systolic blood pressure Diastolic blood pressure Provider Name and Address Organization Details Last Updated DateTime 01/29/2024 97 % 97 % 140 mm[Hg] 70 mm[Hg] Luis F Osborn MD [address], [place], [address], [email or web address] [facility] 12:07:58 Date Recorded Body height Body mass index (BMI) Body weight Body temperature Oxygen saturation Oxygen saturation in Arterial blood by Pulse oximetry Heart rate Provider Name and Address Organization Details Last Updated DateTime 5 160.02 cm 22.2 kg/m2 61074.1 g 96.9 [degF] 96 % 96 % 81 /min Clary Martin RN [facility] 11:59:31 Date Recorded Systolic blood pressure Diastolic blood pressure Provider Name and Address Organization Details Last Updated DateTime 04/30/2024 160 mm[Hg] 100 mm[Hg] Luis F Osborn MD [address], [place], [address], [place] [email or web address] [facility] 04/30/2024 12:31:50 Date Recorded Body height Body mass index (BMI) Body weight Body temperature Oxygen saturation Oxygen saturation in Arterial blood by Pulse oximetry Heart rate Provider Name and Address Organization Details Last Updated DateTime 5 160.02 cm 22 kg/m2 95018.1 5 g 97.2 [degF] 97 % 97 % 60 /min Clary Martin RN [facility] [employer] 11:20:02 Date Recorded Systolic blood pressure Diastolic blood pressure Systolic blood pressure Diastolic blood pressure Provider Name and Address Organization Details Last Updated DateTime 06/16/2024 180 mm[Hg] 104 mm[Hg] 156 mm[Hg] 84 mm[Hg] Rima Osborn MD [address], [facility] [address], [place], [address] , [email or web address] [facility] 11:46:13 Social History Question Answer Notes LastModified by Organizat ion Details LastModified Time Tobacco Smoking Status Current Every Day Smoker Angelic Puentesmargot sofia, [email or web address] [facility] 08/30/2022 10:52:39 Do You Have An Advance Directive? Yes [id number] Information not available 05/30/2022 What Is Your Level Of Alcohol Consumption? None [id number] Information not available 05/30/2022 Are You Blind Or Do You Have Difficulty Seeing? No Wears 1 Contact In Right Eye Information not available 08/30/2022 What Is Your Level Of Caffeine Consumption? Heavy 6 Cups Of Coffee Per Day [email or web address] Information not available 06/16/2024 How Much Tobacco Do You Chew? None [id number] Information not available 05/30/2022 What Is Your Code Status? Full Code Information not available 08/30/2022 Are You Deaf Or Do You Have Serious Difficulty Hearing? No Information not available 08/30/2022 What Type Of Diet Are You Following? REGULAR [id number] Information not available 05/30/2022 Which Illicit Or Recreational Drugs Have You Used? None Information not available 08/30/2022 Do You Or Have You Ever Used E-cigarettes Or Vape? 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 Yes POA: Jose Martin Carrero Information not available 08/30/2022 What Was The Date Of Your Most Recent Tobacco Screening? 07/16/2023 Information not available 07/16/2023 What Is Your Current Pack Years? 30ormorepacky ears [email or web address] Information not available 06/16/2024 At What Age Did You Start Smoking Tobacco? 21 Information not available 08/30/2022 Do You Or Have You Ever Used Smokeless Tobacco? Former Smokeless Tobacco User [id number] Information not available 05/30/2022 How Much Tobacco Do You Smoke? 1 PPD Actually 3/4 Pack Of Day [email or web address] Information not available 06/16/2024 Do You Feel Stressed (tense, Restless, Nervous, Or Anxious, Or Unable To Sleep At Night)? [id number] Anxiety From Coming To The [place] [facility] Information not available 06/05/2023 Do You Use Any Illicit Or Recreational Drugs? No [email or web address] Information not available 06/16/2024 How Many Years Have You Smoked Tobacco? 50 [email or web address] Information not available 06/16/2024 Do You Have Any Dietary Restrictions? No Information not available 08/30/2022 Do You Or Have You Ever Used Any Other Forms Of Tobacco Or Nicotine? No [email or web address] Information not available 06/16/2024 How Many Years Have You Used Smokeless Tobacco? 1 Actually Only A Couple Months If That. [email or web address] Information not available 06/16/2024 Sex: Unknown Functional Status Question Answer Note LastModified by Organizat ion Details LastModified Time Do you have difficulty walking or climbing stairs? No Information not available 08/30/2022 Do you have transportation difficulties? No Information not available 08/30/2022 Are you able to walk? YESWOREST Information not available 08/30/2022 Do you have difficulty doing errands alone? No Information not available 08/30/2022 Are you able to care for yourself? Yes Information n ot available 08/30/2022 Do you have difficulty dressing or bathing? No Information not available 08/30/2022 What is your exercise level? Moderate [id number] Information not available 05/30/2022 Mental Status Question Answer Note LastModified by Organization D etails LastModified Time Do you have difficulty concentrating, remembering or making decisions? No Information no t available 08/30/2022 Family History Relationship Description Onset Age of this Age Resolved Age Notes LastModified by Organization Details LastModified Time Father Cardiopulmon sanchez bypass operation [id number] Not available 05/30/2022 05:53:25 Medical History Condition Response BRONCHITIS Y URINARY/BLADDER/KIDNEY PROBLEMS Y PNEUMONIA Y HIGH CHOLESTEROL / HYPERLIPIDEMIA Y Gynecological History Statement/Question Response Date of Last Mammogram 11/13/2021 Date of Last Colonoscopy 04/01/2020 Date of LMP Obstetrics History GPAL:G 0 P 0 0 0 0 Immunizations Vaccine Type Date Status Note Provider Nam e and Address Organization Details Recorded Time influenza, unspecified formulation 3 completed Luis F Osborn MD [address], [address], [place], [address], [employer] [employer] 01/30/2023 11:36:07 Influenza, high-dose, quadrivalent, PF 3 completed Luis F Osborn MD [address], [address], [place], [address], [facility] 01/30/2023 11:36:07 COVID-19, mRNA, LNP-S, PF, 50 mcg/0.5 mL 3 completed Lusi F Osborn MD [address], [address], [place], [address], [facility] 01/30/2023 11:36:07 Influenza, split virus, trivalent, preservative 5 completed Luis F Osborn MD [address], [address], [place], [address], [facility] 01/30/2023 11:36:07 Influenza, split virus, quadrivalent, preservative 1 completed Luis F Osborn MD [address], [address], [place], [address], [facility] 01/30/2023 11:36:07 Influenza, split virus, quadrivalent, preservative 0 completed Luis F Osborn MD [address], [address], [place], [address], [employer] 01/30/2023 11:36:07 pneumococcal polysaccharide PPV23 0 completed Luis F Osborn MD [address], [address], [place], [address], [facility] [email or web address] [facility] 01/30/2023 11:36:07 Influenza, split virus, quadrivalent, preservative 9 completed Luis F Osborn MD [address], [address], [place], [address], [employer] [facility] [employer] 01/30/2023 11:36:07 Influenza, split virus, trivalent, preservative 4 completed Luis F Osborn MD [address], [place], [address], [employer] [facility] 01/30/2023 11:36:07 Influenza, split virus, trivalent, preservative 3 completed Luis F Osborn MD [address], [place], [address], [employer] [facility] [employer] 01/30/2023 11:36:07 Influenza, split virus, quadrivalent, PF 6 completed Luis F Osborn MD [address], [place], [address], [employer] [facility] [employer] 01/30/2023 11:36:07 Past Encounters Encounter ID Performer Location Encounter Start Date Encounter Closed Date Diagnosis/Indication Diagnosis SNOMED-CT Code Diagnosis ICD10 Code Diagnosis Note [id number] [facility] [address] [place] [address] 10/11/2020 00:00:00 10/11/2020 08:54:36 [id number] [facility] [address] [place] [address] 03/01/2021 00:00:00 03/01/2021 13:51:35 [id number] [facility] [place] [address] 04/25/2021 00:00:00 04/25/2021 09:53:29 [id number] [facility] [place] [address], [place] [address] 09/18/2021 00:00:00 09/18/2021 10:18:58 [id number] [facility] [place] [address] [place] [address] 11/23/2021 00:00:00 11/23/2021 10:19:13 [id number] [facility] [place] [address] [place] [address] 02/01/2022 00:00:00 02/01/2022 14:21:[id number] [address] 05/28/2022 00:00:00 05/28/2022 10:21:44 [id number] Luis F Osborn MD [address] [address] 06/13/2022 10:28:57 06/13/2022 11:20:12 Hypertensive disorder 61170303 I10 Hyperlipidemia 45449687 E78.5 Smoker 74960732 F17.200 Anxiety disorder F41.9 [id number] Luis F Osborn MD [address] [address] 07/12/2022 14:52:31 07/12/2022 15:19:10 Hypertensive disorder 55293703 I10 Smoker 50271930 F17.200 Anxiety disorder F41.9 [id number] Luis F Osborn MD [address] [address] 08/30/2022 10:50:06 08/30/2022 11:14:43 Anxiety disorder 404536912 F41.9 Hypertensive disorder 38 035306 I10 Smoker 19497093 F17.200 Hyperlipidemia 11646653 E78.5 Osteoporosis 34543502 M8 1.0 [id number] Luis F Osborn MD [address] [address] 01/30/2023 10:46:30 01/30/2023 11:59:38 Hyperlipidemia 15354510 E78.5 Hypertensive disorder 38 061430 I10 Anxiety disorder 1807255 06 F41.9 Osteoporosis 98237299 M8 1.0 Smoker 75300471 F17.339 [id number] Luis F Osborn MD [address] [address] 02/27/2023 10:11:14 02/27/2023 10:33:17 Hyperlipidemia 94699592 E78.5 Hypertensive disorder 38 117816 I10 Anxiety disorder 5438218 06 F41.9 Osteoporosis 37419886 M8 1.0 Smoker 26579950 F17.789 [id number] Luis F Osborn MD [address] [address] 06/05/2023 12:16:03 06/05/2023 13:57:00 Hypertensive disorder 47239425 I10 Anxiety disorder 3929938 06 F41.9 Hyperlipidemia 91240050 E78.5 Osteoporosis 26293645 M8 1.0 Smoker 66711392 F17.200 Diabetes m ellitus screening 784988953 Z13.1 Vitamin D deficiency 347 54821 E55.9 [id number] Luis F Osborn MD [address] [address] 07/16/2023 15:18:51 07/16/2023 16:34:56 Screening for disorder 210555284 Z13.9 Hypertensive disorder 38 704273 I10 Anxiety disorder 2384041 06 F41.9 Hyperlipidemia 29923081 E78.5 Osteoporosis 32952405 M8 1.0 Smoker 36897573 F17.200 Vitamin D deficiency 347 67305 E55.9 Improved [id number] Luis F Osborn MD [address] [address] 10/15/2023 15:21:30 10/15/2023 15:53:19 Hypertensive disorder 14673524 I10 Anxiety disorder 9853672 06 F41.9 Hyperlipidemia 88949133 E78.5 Osteoporosis 37618280 M8 1.0 Smoker 50297549 F17.200 Vitamin D deficiency 347 14061 E55.9 Improved Pulmonary emphysema 8743 3001 J43.9 [id number] Luis F Osborn MD [address] [address] 01/29/2024 11:48:28 01/29/2024 13:00:14 Anxiety disorder 859784942 F41.9 Hyperlipidemia 15731875 E78.5 Hypertensive disorder 38 576462 I10 Osteoporosis 59820234 M8 1.0 Smoker 43965590 F17.200 Vitamin D deficiency 347 06409 E55.9 Improved Pulmonary emphysema 8743 3001 J43.9 [id number] Luis F Osborn MD [address] [address] 04/30/2024 11:50:37 04/30/2024 12:22:27 Anxiety disorder 539680033 F41.9 Hyperlipidemia 76121889 E78.5 Hypertensive disorder 38 569039 I10 Osteoporosis 18114557 M8 1.0 Vitamin D deficiency 347 26907 E55.9 Improved Smoker 29234614 F17.200 Pulmonary emphysema 8743 3001 J43.9 [id number] Luis F Osborn MD [address] [address] 06/16/2024 11:01:12 06/16/2024 12:23:02 Anxiety disorder 489478478 F41.9 Hyperlipidemia 15697565 E78.5 Hypertensive disorder 38 302419 I10 Osteoporosis 56433149 M8 1.0 Vitamin D deficiency 347 39315 E55.9 Improved Pulmonary emphysema 8743 3001 J43.9 Cigarette smoker 5515926 7 F17.210 Screening mammography 24 455434 Z12.31 Health Concerns Section Related Observation LastModified by Organization Detai ls LastModified Time None Recorded Concern Status LastModified by Organization Details LastModified Time None Recorded Advance Directives Directive Y: Payers Encounter Date Sequence Insurance Name Policy Number Policy Aguero Covered Member ID Aguero Member ID Guarantor Name 07/16/2023 1 [place] Cherri Lopez [id number] 3 Cherri Chávez Jessica 07/16/2023 2 [employer] - OPEN ACCESS PLUS [id number] Cherri Lopez [id number] Cherri Chávez Jessica 10/15/2023 1 [place] Cherri Chávez Jessica [id number] Chreri Chávez Jessica 10/15/2023 2 [employer] - OPEN ACCESS PLUS [id number] Cherri Chávez Jessica [id number] Cherri Chávez Jessica 01/29/2024 1 [place] Cherri Chávez Jessica [id number] Cherri Chávez Jessica 01/29/2024 2 [employer] - OPEN ACCESS PLUS [id number] Cherri Chávez Jessica [id number] Cherri Chávez Jessica 04/30/2024 1 [place] Cherri Chávez Jessica [id number] Cherri Chávez Jessica 04/30/2024 2 [employer] - OPEN ACCESS PLUS [id number] Cherri Chávez Jessica [id number] Cherri Chávez Jessica 06/16/2024 1 [place]MEDICARE[place] Cherri Chávez Jessica [id number] Cherri Chávez Jessica 06/16/2024 2 [employer] - OPEN ACCESS PLUS [id number] Cherri Chávez Jessica [id number] Cherri Lopez Notes Date Note Type Note Provider Name and Address Organization Details Recorded Time 07/16/2023 text/html Pt is here for f/u on her annual exam and MAWV. Doing overall better. Denies any problem with meds. Denies any new concern. Pt's dog is not doing well and she is under some stress due to that. Pt is not checking her BP at home yet.She has anxiety is improved overall. Pt denies any depression/mood swings/SI/HI. Pt has not seen a counsellor yet. Luis F Osborn MD [address] [place] [address], [facility] [address], [place], [address], [facility] 07/16/2023 16:31:07 10/15/2023 text/html Pt is here for f/u on her meds and chronic conditions. Doing overall better. Denies any problem with meds. Denies any new concern. Pt's dog is not doing well and she is under some stress due to that. Pt is not checking her BP at home yet.She has anxiety is improved overall. Pt denies any depression/mood swings/SI/HI. Pt has not seen a counsellor yet. Luis F Osborn MD [address], [place], [address], [employer] [facility] 10/15/2023 15:50:01 01/29/2024 text/html Pt is here for f/u on her meds and chronic conditions. Doing overall better. Denies any problem with meds. Denies any new concern. Pt's dog is not doing well and she is under some stress due to that. Pt is not checking her BP at home yet.She has anxiety is improved overall. Pt denies any depression/mood swings/SI/HI. Pt has not seen a counsellor yet. Pt has not seen Pul[facility] yet. Luis F Osborn MD [address] [facility], [place], [address], [employer] [facility] 01/29/2024 12:42:47 04/30/2024 text/html Pt is here for f/u on her meds and chronic conditions. Doing overall better. Denies any problem with meds. Denies any new concern. Pt's dog is not doing well and she is under some stress due to that. Pt is not checking her BP at home yet.She has anxiety is improved overall. Pt denies any depression/mood swings/SI/HI. Pt has not seen a counsellor yet. Pt has not seen Pulmo yet. Luis F Osborn MD [address] [facility], [place], [address], [employer] [facility] 04/30/2024 12:33:35 06/16/2024 text/html Pt is here for her annual exam. Doing overall better. Denies any problem with meds. Denies any new concern. Pt's dog was not doing well and it was placed under sleep last week. So pt is under stress due to that. Pt is checking her BP at home and its in 150/90 range.She has anxiety is improved overall. Pt denies any depression/mood swings/SI/HI. Pt did not tolerate Bupropion and so she stopped it. Pt has not seen a counsellor yet. Pt has not seen Pulmo yet. Luis F Osborn MD [address] [place] [address], [facility] [address], [place], [address], [place] [facility] [employer] 06/16/2024 11:51:31 OBGyn Episode No OBEpisode recorded.
--- OUTSIDE RECORDS SUMMARY | 2024-06-26 10:45 | XMS_ITS | Encounter Summary ---
Author Organization [employer] Address 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
--- OUTSIDE RECORDS SUMMARY | 2024-06-26 10:45 | XMS_ITS | Clinical Summary ---
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 Gender Identity Not on file Sexual Orientation Not on file Occupation Industry Job Start Date Job End Date Not on file Not on file Not on file Not on file Plan of Treatment Health Maintenance Due Date Last Done Comments DTAP/TDAP/TD VACCINES (1 - Tdap) 1973 COLORECTAL SCREENING 1999 Colorectal Cancer Screening 1999 FIT-DNA Q 3 years 1999 FIT/FOBT Q 1 year 1999 Flex Sig/CT Colonography Q 5 years 1999 PNEUMOCOCCAL VACCINE 50+ YEA RS (1 of 1 - PCV) 01/26/2004 ZOSTER VACCINE (1 of 2) 01/26/2004 BREAST CANCER SCREENING 01/13/2016 01/13/20 15, 01/08/2014, 02/16/2013, Additional history exists OSTEOPOROSIS SCREENING 2019 INFLUENZA VACCINE (#1) 2023 RSV VACCINE (60+ or ) (1 - 1-dose 75+ series) 2029 Procedures Procedure Name Priority Date/Time Associated Diagnosis Comments MAMMO SCREEN BILAT W OR WO CAD Routine 01/12/2015 11:00 AM CDT Visit for screening mammogram from Last 3 Months or Most Recently Relevant to Health Maintenance Results * MAMMO DIGITAL SCREEN BILAT (01/12/2015 11:00 AM CDT) Anatomical Region Laterality Modality Breast Bilateral Mammography Narrative 01/13/2015 9:48 AM CDT Bilateral digital screening mammogram with computer assisted diagnosis History: Annual screening exam. Findings: A bilateral screening mammogram was performed. Comparison is made to : 01/08/2014, 02/16/2013, 02/14/2012 There are scattered fibroglandular densities. No new masses, suspicious calcifications, or areas of asymmetry or distortion are identified. CAD was utilized. Impression: Negative screening mammogram. Recommendation: Routine annual follow-up Overall Assessment: Birads Category 1: Negative us Rissa Tello MD MAMMO ORDERABLES Final Resul t from Last 3 Months or Most Recently Relevant to Health Maintenance Insurance Bleacher Report OPEN ACCESS HMO Care Teams Ticket Dispenser Changer Relationship Specialty Start Date End Date Rissa Tello MD [address] [address] PCP - General 03/18/15
--- OUTSIDE RECORDS SUMMARY | 2024-06-26 10:45 | XMS_ITS | Continuity of Care Document ---
Author Organization [facility] Address [address] [facility] [address] [place] [address] Phone Care Team Providers Care Designer Writer Name Role Phone Bolivar OD, Adriel Unavailable Unavailable Advance Directives Directive Yes / No Effective Date File Name No Information Encounters Encounter Description Practice Location Reason(s) For Visit Diagnoses Date Provider Providers Copied on Encounter [facility], [address], [place], [place], [id number], [place] tel:[phone] [facility] No Information 0-200 4 Bolivar OD Adriel. [address], [place], [address], [place]. tel:[phone] Family History Family Member Type Diagnosis Age At Onset No Information Payers Payer name Insurance type Covered republican ID Authoriza tion(s) No Information Social History Type Description Quantity Date Captured Comments Sex Female Smoking Status No Information Chief Complaint And Reason For Visit No Information Reason For Referral Reason For Referral No Information History Of Present Illness Encounter Date Complaint History Of Prese nt Illness No Information Functional Status Date Functional Assessmen t No Information Instructions Date Instruction Additional Infor mation No Information Assessments Type Assessment Date No Information Patient Care Teams Name Effective Dates (start - stop) Status Members No Information
== END 2024-06-26 09:43 | disposition home or self-care (01) ==
PROVIDERS: PCP Family Medicine; Visit Provider Family Medicine
DX: Z12.2 Encounter for screening for malignant neoplasm of respiratory organs (principal); Z87.891 Personal history of nicotine dependence
CPT/HCPCS: 71271

== ENCOUNTER 2024-07-24 09:26 | Outpatient (CLI) | payer MEDICARE, OTHER, SELFPAY ==
--- NOTE | ~2024-07-24 | XR_ITS ---
Supine and upright views of the abdomen Clinical history: Renal stone Findings: Bowel gas pattern is nonspecific. No evidence for obstruction or free air. No abnormal mass lesion or calcification is seen. Osseous structures are intact. Impression: No significant abnormality is seen. Reviewed, dictated and finalized at [facility]. Impression: No significant abnormality is seen.
--- OUTSIDE RECORDS SUMMARY | 2024-07-24 09:38 | XMS_ITS | Encounter Summary ---
Author Organization [employer] Address 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
--- OUTSIDE RECORDS SUMMARY | 2024-07-24 09:39 | XMS_ITS | Encounter Summary ---
Author Organization [facility] Address 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
--- OUTSIDE RECORDS SUMMARY | 2024-07-24 09:39 | XMS_ITS | Encounter Summary ---
Author Organization [facility] Address 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
--- OUTSIDE RECORDS SUMMARY | 2024-07-24 09:39 | XMS_ITS | Continuity of Care Document ---
Author Organization [facility] Address [address] [facility] [address] [place] [address] Phone Care Team Providers Care New Car Get Ready Mechanic Name Role Phone Bolivar OD, Adriel Unavailable Unavailable Advance Directives Directive Yes / No Effective Date File Name No Information Encounters Encounter Description Practice Location Reason(s) For Visit Diagnoses Date Provider Providers Copied on Encounter [facility], [address], [place], [place], [id number], [place] tel:[phone] [facility] No Information 0-200 4 Bolivar OD Adriel. [address], [place], [address], [place]. tel:[phone] Family History Family Member Type Diagnosis Age At Onset No Information Payers Payer name Insurance type Covered libertarian ID Authoriza tion(s) No Information Social History [...]
--- OUTSIDE RECORDS SUMMARY | 2024-07-24 09:39 | XMS_ITS | Data Portability ---
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 Annual labs, LDCT chest in 06/23. [email or web address] Not available 10/15/2023 15:49:30 01/29/2024 01/29/2024 69 [...] months. Annual labs, LDCT chest in 06/23. [email or web address] Not available 01/29/2024 12:10:29 04/30/2024 04/30/2024 69 [...] months. Annual labs, LDCT chest in 06/23. [email or web address] Not available 04/30/2024 12:32:44 06/16/2024 06/16/2024 69 [...] weeks. Annual labs, LDCT chest in 06/24. [email or web address] Not available 06/16/2024 11:50:28 07/07/2024 07/07/2024 69 yo F with - MICROSCOPIC HEMATURIA, new - B/L KIDNEY STONE, new - HTN, improved - HLD - ANXIETY - EMPHYSEMA, mild - GOITER - KYPHOSIS - SMOKER - H/O HYPERCALCEMIA LDCT chest: 06/26/24. Annual labs: 06/18/24. CT head wo: 05/24/24. LDCT chest: 06/19/23. Annual labs: 06/12/23. LDCT chest: 06/06/22. US thyroid: 06/06/22. Annual labs: 05/29/22. D/w pt in detail about her conditions, recent labs & imagines and further plan of care. Will refer pt [place]ro. [place]. All meds verified with pt. Meds as directed. Diet and exercise explained in detail. BP diary education given and call us if any concerns. Encouraged pt to cut down and quit smoking. Educated pt about alarming symptoms to monitor at home. F/u with Uro as per schedule. F/u with Cardio as per schedule. F/u [...] osteoporosis ++. Flu - Pt gets at her pharmacy. Tdap - 2022. Pneumo - 12/19. Shingrix - At pharmacy/HD. F/u in 2 months. Annual labs, LDCT chest in 06/24. [email or web address] Not available 07/07/2024 11:56:48 Plan of Treatment Reminders Order Date Submit Date Provider Last Modified By Organization Details Last Modified Time Details Appointments Follow Up 15 2024 10:30A M Luis F Osborn MD Not available Not available Not available Lab HbA1c (hemoglob in A1c), blood 2024 025 [facility], [address], [place], [address], 06/20/2024 00:35:02 CBC w/ auto diff 2024 025 [facility], [address], [address], [place], [address], 06/20/2024 00:34:56 CMP, serum or plasma 2024 025 [facility], [address], [address], [place], [address], 06/20/2024 00:34:55 urinalysi s complete, reflex culture 2024 025 [facility], [address], [address], [place], [address], 06/20/2024 00:34:57 vitamin B12 + folate, serum or blood 2024 025 [facility], [address], [address], [place], [address], 06/20/2024 00:34:59 lipid panel, serum 2024 025 [facility] [facility], [address], [place], [address], 06/20/2024 00:34:53 TSH, serum, reflex free T4 2024 025 [email or web address] [facility], [address], [place], [address], 07/16/2024 11:09:34 vitamin D, 25-hydrox y, total, serum 2024 025 [email or web address], [address], [place], [address], 06/20/2024 00:35:01 Referral urologist referral - Kidney stones on LDCT chest findings, microscop ic hematuria ++ Please call patient to schedule an appointme nt. Thank you. 2024 025 [facility], [address], [address], [place], [address], 07/13/2024 19:35:13 cardiolog ist referral - Please call patient to schedule an appointme nt. Thank you 2024 025 [facility], [address], [address], [place], [address], 07/13/2024 17:20:36 [email or web address] gist referral - Please call patient to schedule an appointme nt. Thank you 2023 024 [email or web address] Ryan Lee MD, [address] [place], [address], 11/12/2023 08:33:38 Procedures None recorded. Surgeries None recorded. Imaging MAMMO, screening , bilateral 2024 025 [email or web address], [address], [place], [address], 07/02/2024 15:34:56 LDCT, chest, for lung cancer screening - Please call patient to schedule. [address] ([facility]), [address], [place], [address], 06/28/2024 16:12:24 Medication Orders alendrona te 70 mg tablet 2024 [facility] #82065, [address] [facility], [place], [place], [id number], 07/07/2024 11:49:52 lisinopri l 40 mg tablet 2024 025 [facility] #88484, [address], [place], [id number], 07/07/2024 11:49:52 metoprolo l succinate ER 50 mg tablet,ex tended release 24 hr 2024 025 [facility] #05881, [address], [place], [id number], 07/07/2024 11:49:51 clonidine HCl 0.1 mg tablet [address] [facility]27719, [address], [place], [id number], 07/07/2024 11:50:40 lorazepam 0.5 mg tablet 2024 025 [facility] #76069, [address], [place], [id number], 07/07/2024 11:49:54 atorvasta tin 40 mg tablet 2024 025 [facility] #01131, [address], [place], [id number], 07/07/2024 11:49:53 alendrona te 70 mg tablet 2024 [facility] #02476, [address] [facility], [place], [place], [id number], 06/16/2024 11:36:37 lisinopri l 40 mg tablet 2024 [facility] #01516, [address] [facility], [place], [place], [id number], 06/16/2024 11:36:55 metoprolo l succinate ER 50 mg tablet,ex tended release 24 hr 2024 [email or web address] [facility] #08715, [address] [facility], [place], [place], [id number], 06/16/2024 11:36:42 clonidine HCl 0.1 mg tablet 2024 [facility] #55098, [address] [facility], [place], [place], [id number], 06/16/2024 11:36:36 atorvasta tin 40 mg tablet 2024 [facility] #97836, [address] [facility], [place], [place], [id number], 06/16/2024 11:36:54 varenicli ne tartrate 1 mg tablet 2024 [facility] #38419, [address] [facility], [place], [place], [id number], 06/16/2024 11:49:40 alendrona te 70 mg tablet 2024 [facility] #33559, [address] [facility], [place], [place], [id number], 04/30/2024 12:14:48 lisinopri l 40 mg tablet 2024 025 [facility] #77276, [address] [facility], [place], [place], [id number], 04/30/2024 12:14:56 metoprolo l succinate ER 50 mg tablet,ex tended release 24 hr 2024 025 [facility] #19185, [address] [facility], [place], [place], [id number], 04/30/2024 12:15:06 varenicli ne tartrate 0.5 mg tablet [address] [facility] #40296, [address] [facility], [place], [place], [id number], 07/07/2024 11:54:08 lorazepam 0.5 mg tablet 2024 025 [facility] #82030, [address] [facility], [place], [place], [id number], 04/30/2024 12:15:15 bupropion HCl XL 150 mg 24 hr tablet, extended release [address] [facility] #76765, [address] [facility], [place], [place], [id number], 06/16/2024 11:48:52 atorvasta tin 40 mg tablet 2024 025 [facility] #35970, [address] [facility], [place], [place], [id number], 04/30/2024 12:14:52 alendrona te 70 mg tablet 2023 024 [facility] #51933, [address] [facility], [place], [place], [id number], 01/29/2024 12:11:50 lisinopri l 40 mg tablet 2023 [facility] #30361, [address] [facility], [place], [place], [id number], 01/29/2024 12:11:58 metoprolo l succinate ER 25 mg tablet,ex tended release 24 hr [address] [facility] #27648, [address] [facility], [place], [place], [id number], 04/30/2024 12:18:04 varenicli ne tartrate 0.5 mg tablet [address] [facility] #76199, [address] [facility], [place], [place], [id number], 07/07/2024 11:54:08 lorazepam 0.5 mg tablet 2023 [facility] #76953, [address] [facility], [place], [place], [id number], 01/29/2024 12:11:58 bupropion HCl XL 150 mg 24 hr tablet, extended release [address] [facility] #24515, [address] [facility], [place], [place], [id number], 06/16/2024 11:48:52 atorvasta tin 40 mg tablet 2023 [facility] #76331, [address] [facility], [place], [place], [id number], 01/29/2024 12:11:55 alendrona te 70 mg tablet 2023 [facility] #42294, [address] [facility], [place], [place], [id number], 10/15/2023 15:37:11 lisinopri l 40 mg tablet [address] [facility] #22745, [address] [facility], [place], [place], [id number], 10/15/2023 15:39:06 metoprolo l succinate ER 25 mg tablet,ex tended release 24 hr [address] [facility] #10844, [address], [place], [id number], 04/30/2024 12:18:04 lorazepam 0.5 mg tablet 2023 024 [facility] #29202, [address], [place], [id number], 10/15/2023 15:37:15 bupropion HCl XL 150 mg 24 hr tablet, extended release [address] [facility] #50135, [address] [facility], [place], [place], [id number], 06/16/2024 11:48:52 atorvasta tin 40 mg tablet 2023 024 [facility] #18630, [address], [place], [id number], 10/15/2023 15:37:19 Patient TargetsNo targets recorded. Patient InstructionsNo instructions recorded. Reason for Referral [employer] Referral for P ulmonary emphysema Please call patient to schedule an appointment. 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 Thank you Referring Physician: Luis F Osborn [facility], Encounter Date: 06/16/2024 Urologist Referral for Micro scopic hematuria Kidney stones on LDCT chest findings, microscopic hematuria ++ Kidney stones on LDCT chest findings, microscopic hematuria ++ Please call patient to schedule an appointment. Thank you. Referring Physician: Luis F Osborn, Family Medicine, Encounter Date: 07/07/2024 Results Created Date Observation Date Name Description Value Unit Range Abnormal Flag Note LastModifiedBy Organization Detail LastModifiedTime 06/19/1906/19/2024 LIPID PANEL , STAND SPENCER cholesterol, total 139 mg/dL <200 normal Not Available [facility] [address], [address], 06/20/2024 00:34:53 06/19/19 25 06/19/2024 LIPID PANEL , STAND SPENCER HDL cholesterol 52 mg/dL > or = 50 normal Not Available [facility] [address], [address], 06/20/2024 00:34:53 06/19/19 25 06/19/2024 LIPID PANEL , STAND SPENCER triglyceride s 73 mg/dL <150 normal Not Available [facility] [address] [address] [place], [address], 06/20/2024 00:34:53 06/19/1906/19/2024 LIPID PANEL , STAND SPENCER LDL-choleste rol 72 mg/dL _(mila c) normal Refer ence range : <100 Catarino able range <100 mg/dL for prima ry preve ntion ; <70 mg/dL for patie nts with CHD or diabe tic patie nts with > or = 2 CHD risk facto rs. LDL-C is now calcu lated using the Raquel n-Hop kins calcu bryan n, which is a valid ated novel metho d provi gladys pereyrate r accur acy than the Fried li equat ion in the estim ation of LDL-C . Raquel chang SS et al. MELANIE. 2013; 310(1 9): 2061- 2068 (http ://ed ucati on.Qu estDi GreenTec-USAos tics. com/f aq/FA Q164) Not Available [facility] [address], [address], 06/20/2024 00:34:53 06/19/19 25 06/19/2024 LIPID PANEL , STAND SPENCER chol/HDLC ratio 2.7 (calc ) <5.0 normal Not Available [address], [address], 06/20/2024 00:34:53 06/19/19 25 06/19/2024 LIPID PANEL , STAND SPENCER non HDL cholesterol 87 mg/dL _(mila c) <130 normal For patie nts with diabe kristine plus 1 major ASCVD risk facto r, treat ing to a non-H DL-C goal of <100 mg/dL (LDL- C of <70 mg/dL ) is wong cote optio n. Not Available [address] [place], [address], 06/20/2024 00:34:53 06/19/19 25 06/19/2024 COMPR EHENS KELSEY METAB OLIC PANEL glucose 91 mg/dL 65-99 normal Fasti ng refer ence inter lucille Not Available [address] [place], [address], 06/20/2024 00:34:55 06/19/19 25 06/19/2024 COMPR EHENS KELSEY METAB OLIC PANEL urea nitrogen (BUN) 18 mg/dL 7-25 normal Not Available [address], [address], 06/20/2024 00:34:55 06/19/19 25 06/19/2024 COMPR EHENS KELSEY METAB OLIC PANEL creatinine 0.94 mg/dL 0.60-1 .00 normal Not Available [address], [address], 06/20/2024 00:34:55 06/19/19 25 06/19/2024 COMPR EHENS KELSEY METAB OLIC PANEL eGFR 65 mL/mi n/1.7 3m2 > or = 60 normal Not Available [address] [address] [place], [address], 06/20/2024 00:34:55 06/19/19 25 06/19/2024 COMPR EHENS KELSEY METAB OLIC PANEL BUN/creatini ne ratio SEE NOTE: (calc ) 6-22 Not Repor sadiq: BUN and Creat inine are withi n refer ence range . Not Available [address], [address], 06/20/2024 00:34:55 06/19/19 25 06/19/2024 COMPR EHENS KELSEY METAB OLIC PANEL sodium 138 mmol/ L 135-14 6 normal Not Available [address], [address], 06/20/2024 00:34:55 06/19/19 25 06/19/2024 COMPR EHENS KELSEY METAB OLIC PANEL potassium 4.4 mmol/ L 3.5-5. 3 normal Not Available [address], [address], 06/20/2024 00:34:55 06/19/19 25 06/19/2024 COMPR EHENS KELSEY METAB OLIC PANEL chloride 103 mmol/ L 98-110 normal Not Available [address], [address], 06/20/2024 00:34:55 06/19/19 25 06/19/2024 COMPR EHENS KELSEY METAB OLIC PANEL carbon dioxide 29 mmol/ L 20-32 normal Not Available [address], [address], 06/20/2024 00:34:55 06/19/19 25 06/19/2024 COMPR EHENS KELSEY METAB OLIC PANEL calcium 10.4 mg/dL 8.6-10 .4 normal Not Available [address], [address], 06/20/2024 00:34:55 06/19/19 25 06/19/2024 COMPR EHENS KELSEY METAB OLIC PANEL protein, total 6.6 g/dL 6.1-8. 1 normal Not Available [address], [address], 06/20/2024 00:34:55 06/19/19 25 06/19/2024 COMPR EHENS KELSEY METAB OLIC PANEL albumin 4.3 g/dL 3.6-5. 1 normal Not Available [address], [address], 06/20/2024 00:34:55 06/19/19 25 06/19/2024 COMPR EHENS KELSEY METAB OLIC PANEL globulin 2.3 g/dL_ (calc ) 1.9-3. 7 normal Not Available [address], [address], 06/20/2024 00:34:55 06/19/19 25 06/19/2024 COMPR EHENS KELSEY METAB OLIC PANEL albumin/glob ulin ratio 1.9 (calc ) 1.0-2. 5 normal Not Available [address], [address], 06/20/2024 00:34:55 06/19/19 25 06/19/2024 COMPR EHENS KELSEY METAB OLIC PANEL bilirubin, total 0.6 mg/dL 0.2-1. 2 normal Not Available [address], [address], 06/20/2024 00:34:55 06/19/19 25 06/19/2024 COMPR EHENS KELSEY METAB OLIC PANEL alkaline phosphatase 66 U/L 37-153 normal Not Available [address], [address], 06/20/2024 00:34:55 06/19/19 25 06/19/2024 COMPR EHENS KELSEY METAB OLIC PANEL AST 24 U/L 10-35 normal Not Available [address], [address], 06/20/2024 00:34:55 06/19/19 25 06/19/2024 COMPR EHENS KELSEY METAB OLIC PANEL ALT 24 U/L 6-29 normal Not Available [address], [address], 06/20/2024 00:34:55 06/19/19 25 06/19/2024 CBC (INCL UDES DIFF/ PLT) white blood cell count 8.2 thous and/u L 3.8-10 .8 normal Not Available [address], [address], 06/20/2024 00:34:56 06/19/19 25 06/19/2024 CBC (INCL UDES DIFF/ PLT) red blood cell count 4.72 ana on/uL 3.80-5 .10 normal Not Available [address], [address], 06/20/2024 00:34:56 06/19/19 25 06/19/2024 CBC (INCL UDES DIFF/ PLT) hemoglobin 14.7 g/dL 11.7-1 5.5 normal Not Available [address], [address], 06/20/2024 00:34:56 06/19/19 25 06/19/2024 CBC (INCL UDES DIFF/ PLT) hematocrit 44.0 % 35.0-4 5.0 normal Not Available [address], [address], 06/20/2024 00:34:56 06/19/19 25 06/19/2024 CBC (INCL UDES DIFF/ PLT) MCV 93.2 fL 80.0-1 00.0 normal Not Available [address] [place], [address], 06/20/2024 00:34:56 06/19/19 25 06/19/2024 CBC (INCL UDES DIFF/ PLT) MCH 31.1 pg 27.0-3 3.0 normal Not Available [address], [address], 06/20/2024 00:34:56 06/19/19 25 06/19/2024 CBC (INCL UDES DIFF/ PLT) MCHC 33.4 g/dL 32.0-3 6.0 normal For adult s, a sligh t decre ase in the calcu lated MCHC value (in the range of 30 to 32 g/dL) is most likel y not clini serena signi fican t; anne-marie er, it shoul d be inter prete d with cauti on in [facility] n with other red cell katherine eters and the patie nt's clini mila condi tion. Not Available [address], [address], 06/20/2024 00:34:56 06/19/19 25 06/19/2024 CBC (INCL UDES DIFF/ PLT) RDW 13.1 % 11.0-1 5.0 normal Not Available [address], [address], 06/20/2024 00:34:56 06/19/19 25 06/19/2024 CBC (INCL UDES DIFF/ PLT) platelet count 212 thous and/u L 140-40 0 normal Not Available [facility] [address], [address], 06/20/2024 00:34:56 06/19/19 25 06/19/2024 CBC (INCL UDES DIFF/ PLT) MPV 11.8 fL 7.5-12 .5 normal Not Available [facility] [address], [address], 06/20/2024 00:34:56 06/19/19 25 06/19/2024 CBC (INCL UDES DIFF/ PLT) absolute neutrophils 4305 cells /uL 1500-7 800 normal Not Available [address], [address], 06/20/2024 00:34:56 06/19/19 25 06/19/2024 CBC (INCL UDES DIFF/ PLT) absolute lymphocytes 2960 cells /uL 850-39 00 normal Not Available [address], [address], 06/20/2024 00:34:56 06/19/19 25 06/19/2024 CBC (INCL UDES DIFF/ PLT) absolute monocytes 779 cells /uL 200-95 0 normal Not Available [address], [address], 06/20/2024 00:34:56 06/19/19 25 06/19/2024 CBC (INCL UDES DIFF/ PLT) absolute eosinophils 82 cells /uL 15-500 normal Not Available [address], [address], 06/20/2024 00:34:56 06/19/19 25 06/19/2024 CBC (INCL UDES DIFF/ PLT) absolute basophils 74 cells /uL 0-200 normal Not Available [address], [address], 06/20/2024 00:34:56 06/19/19 25 06/19/2024 CBC (INCL UDES DIFF/ PLT) neutrophils 52.5 % normal Not Available [address], [address], 06/20/2024 00:34:56 06/19/19 25 06/19/2024 CBC (INCL UDES DIFF/ PLT) lymphocytes 36.1 % normal Not Available [address], [address], 06/20/2024 00:34:56 06/19/19 25 06/19/2024 CBC (INCL UDES DIFF/ PLT) monocytes 9.5 % normal Not Available [address], [address], 06/20/2024 00:34:56 06/19/19 25 06/19/2024 CBC (INCL UDES DIFF/ PLT) eosinophils 1.0 % normal Not Available [address], [address], 06/20/2024 00:34:56 06/19/19 25 06/19/2024 CBC (INCL UDES DIFF/ PLT) basophils 0.9 % normal Not Available [address], [address], 06/20/2024 00:34:56 06/19/19 25 06/19/2024 URINA LYSIS , COMPL ETE W/REF LUC TO CULTU RE color DARK YELLOW yellow normal Not Available [address], [address], 06/20/2024 00:34:57 06/19/19 25 06/19/2024 URINA LYSIS , COMPL ETE W/REF LUC TO CULTU RE appearance CLEAR clear normal Not Available [address], [address], 06/20/2024 00:34:57 06/19/19 25 06/19/2024 URINA LYSIS , COMPL ETE W/REF LUC TO CULTU RE specific gravity 1.019 1.001- 1.035 normal Not Available [address], [address], 06/20/2024 00:34:57 06/19/19 25 06/19/2024 URINA LYSIS , COMPL ETE W/REF LUC TO CULTU RE pH 5.5 5.0-8. 0 normal Not Available [address], [address], 06/20/2024 00:34:57 06/19/19 25 06/19/2024 URINA LYSIS , COMPL ETE W/REF LUC TO CULTU RE glucose NEGATI VE negati ve normal Not Available [facility] [address], [address], 06/20/2024 00:34:57 06/19/19 25 06/19/2024 URINA LYSIS , COMPL ETE W/REF LUC TO CULTU RE bilirubin NEGATI VE negati ve normal Not Available [facility] [address], [address], 06/20/2024 00:34:57 06/19/19 25 06/19/2024 URINA LYSIS , COMPL ETE W/REF LUC TO CULTU RE ketones TRACE negati ve abnormal Not Available [address], [address], 06/20/2024 00:34:57 06/19/19 25 06/19/2024 URINA LYSIS , COMPL ETE W/REF LUC TO CULTU RE occult blood TRACE negati ve abnormal Not Available [address], [address], 06/20/2024 00:34:57 06/19/19 25 06/19/2024 URINA LYSIS , COMPL ETE W/REF LUC TO CULTU RE protein NEGATI VE negati ve normal Not Available [facility] [address], [address], 06/20/2024 00:34:57 06/19/19 25 06/19/2024 URINA LYSIS , COMPL ETE W/REF LUC TO CULTU RE nitrite NEGATI VE negati ve normal Not Available [facility] [address], [address], 06/20/2024 00:34:57 06/19/19 25 06/19/2024 URINA LYSIS , COMPL ETE W/REF LUC TO CULTU RE leukocyte esterase 1+ negati ve abnormal Not Available [address], [address], 06/20/2024 00:34:57 06/19/19 25 06/19/2024 URINA LYSIS , COMPL ETE W/REF LUC TO CULTU RE WBC NONE SEEN /hpf < or = 5 normal Not Available [address], [address], 06/20/2024 00:34:57 06/19/19 25 06/19/2024 URINA LYSIS , COMPL ETE W/REF LUC TO CULTU RE RBC 3-10 /hpf < or = 2 abnormal Not Available [address], [address], 06/20/2024 00:34:57 06/19/19 25 06/19/2024 URINA LYSIS , COMPL ETE W/REF LUC TO CULTU RE squamous epithelial cells 0-5 /hpf < or = 5 Not Available [address], [address], 06/20/2024 00:34:57 06/19/19 25 06/19/2024 URINA LYSIS , COMPL ETE W/REF LUC TO CULTU RE bacteria NONE SEEN /hpf none seen normal Not Available [address], [address], 06/20/2024 00:34:57 06/19/19 25 06/19/2024 URINA LYSIS , COMPL ETE W/REF LUC TO CULTU RE hyaline cast 0-5 /lpf none seen abnormal Not Available [address], [address], 06/20/2024 00:34:57 06/19/19 25 06/19/2024 URINA LYSIS , COMPL ETE W/REF LUC TO CULTU RE note This urine was jacques zed for the prese nce of WBC, RBC, bacte gail, casts , and other forme d eleme nts. Only those eleme nts seen were repor sadiq. Not Available [address], [address], 06/20/2024 00:34:57 06/19/19 25 06/19/2024 REFLE XIVE URINE CULTU RE reflexive urine culture CULTU RE INDIC ATED - RESUL TS TO FOLLO W Not Available [address] [place], [address], 06/20/2024 00:34:59 06/19/19 25 06/19/2024 VITAM IN [...] pg/mL will have sympt oms. Not Available [address] [address] [place], [address], 06/20/2024 00:34:59 06/19/19 25 06/19/2024 VITAM IN B12/F OLATE , SERUM PANEL folate, serum 9.8 NG/mL normal Refer ence Range Low: <3.4 Borde rline : 3.4-5 .4 Oksana l: >5.4 Not Available [address] [address] [place], [address], 06/20/2024 00:34:59 06/19/19 25 06/19/2024 TSH W/REF LUC TO FT4 TSH w/reflex to FT4 2.34 mIU/L 0.40-4 .50 normal Not Available [facility] [address] [address] [place], [address], 06/20/2024 00:35:00 06/19/19 25 06/19/2024 VITAM IN D,25- OH,TO JP,I A vitamin [...] /MS is recom nilda d: order code 07078 (remi ents >2yrs ). See Note 1 Note 1 For addit ional infor lan lin e refer to http: //[facility] seth Ray stDia gnost ics.c om/fa q/FAQ 199 (This link is being provi ded for infor jolie workman/ phoebe olivarez purpo ses only. ) Not Available [facility] [address] [place], [address], 06/20/2024 00:35:01 06/19/1906/19/2024 HEMOG LOBIN A1C hemoglobin A1C 5.6 %_of_ [...] ntly, no conse nsus exist s regar ding use of hemog lobin A1c for diagn [...] Care in Diabe kristine(A DA). Not Available [facility] [address] [place], [address], 06/20/2024 00:35:02 06/19/19 25 06/19/2024 CULTU RE, URINE , ROUTI NE culture, urine, routine SEE NOTE CULTU RE, URINE , ROUTI NE Micro Numbe r: [id number] Test Statu s: Final Speci men Sourc e: Urine Speci men Quali ty: Adequ ate Resul t: No Growt h Not Available [facility] [address] [place], [address], 06/20/2024 00:35:03 05/24/19 25 05/24/2024 imagi ng/di agnos tic resul t No observ ation record ed. 95 [address], [address], 06/16/2024 11:28:39 05/24/19 25 05/24/2024 CT, head, w/o contr ast No observ ation record ed. [address], [address], 06/16/2024 11:28:39 06/28/19 25 06/26/2024 LDCT, chest , for lung cance r scree estevan No observ ation record ed. [address], [address], 07/07/2024 11:40:14 Result Notes None recorded. Problems Name Problem SNOMED Code Status Onset Date Resolution Date Notes Provider Name and Address Organization Details Recorded Time Lee Ann 03573201 Active Not Available [facility] 3 11:52:26 Anxiety disorder 184486150 Active 2022 Not Available [facility] 3 11:52:27 Localized, primary osteoarthr itis of the shoulder region 684128983 Active 2021 Not Available [facility] 3 11:52:27 Feeling stressed 301173488 Completed Not Available [facility] 3 05:58:14 Fluid level behind tympanic membrane Completed Not Available [facility] 3 05:58:14 Flank pain 489771633 Active Not Available [facility] 3 11:52:27 Osteopenia 194104708 Active 2017 Not Available [facility] 3 11:52:27 Blood in urine 42138106 Completed Not Available [facility] 3 05:58:14 Vitamin D deficiency 99665795 Active 2019 Not Available [facility] 3 11:52:27 Goiter 1353893 Active 2022 Not Available [facility] 3 11:52:27 Hypertensi ve disorder 97554877 Active Not Available [facility] 3 11:52:27 Anxiety 21315350 Active Not Available [facility] 3 11:52:27 Hyperlipid emia 37352998 Active Not Available [facility] 3 11:52:27 Hypercalce haydee 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 Not Available [facility] 3 11:52:27 Appendicit is 36195794 Completed Not Available [facility] 3 05:58:15 Posterior rhinorrhea 22745974 Active Not Available [facility] 3 11:52:27 Smoker 19856414 Active 2020 Not Available [facility] 3 11:52:27 Fatigue 26136906 Completed Not Available [facility] 3 05:58:15 Osteoporos is 09753086 Active 2022 Not Available [facility] 3 11:52:27 Pulmonary emphysema 25008812 Active 2023 Luis F Osborn MD [address], [address], [place], [address] , [employer] 4 15:36:22 Cigarette smoker 71793710 Active 2024 Luis F Osborn MD [address], [address], [place], [address] , [employer] [place] [facility] [employer] 11:38:57 Microscopi c hematuria 138470987 Active 2024 Luis F Osborn MD [address], [address], [place], [address] , [employer] 11:41:06 Kidney stone 44323654 Active 2024 Luis F Osborn MD [address], [address], [place], [address] , [employer] 11:55:01 Problem Notes None recorded. Procedures Surgical History Date Name Laterality Status Provider Name and Address Organization Details Recorded Time 06/17/19 25 Smoking Cessation completed Luis F Osborn MD [address], [address], [place], [address], [employer] 06/16/2024 11:51:04 04/30/19 25 Smoking Cessation completed MD Christie Damon, [address], [place], [address], [employer] 04/30/2024 11:33:02 01/29/20 24 Smoking Cessation completed MD Christie Damon [address], [place], [address], [employer] 01/29/2024 12:42:03 10/15/19 24 Smoking Cessation completed MD Christie Damon [address], [place], [address], [employer] 10/15/2023 15:35:49 07/16/19 24 Medicare Wellness CPT Code, Initial completed Marry An RN [place] [employer] 07/16/2023 15:04:30 01/31/20 23 Smoking Cessation completed Luis F Osborn MD [address], [address], [place], [address], [facility] 01/30/2023 10:49:10 08/31/19 23 Smoking Cessation completed Luis F Osborn MD [address], [address], [place], [address], [facility] 08/30/2022 10:50:29 07/13/19 23 Smoking Cessation completed Luis F Osborn MD [address], [address], [place], [address], [facility] 07/12/2022 15:05:43 04/01/19 21 Date of Last Colonoscopy completed Not Available [facility] 05/30/2022 05:53:22 Tubal Ligation completed Not Available [facility] 05/30/2022 05:53:24 Appendectomy completed Not Available [facility] 05/30/2022 05:53:24 Imaging Results Imaging Date Name Status LastModified by Organiz ation Details LastModified Time 05/24/2024 imaging/diagno stic result completed [address] [place] [address], [address], 06/16/2024 11:28:39 05/24/2024 CT, head, w/o contrast completed [address] [place] [address], [address], 06/16/2024 11:28:39 06/26/2024 LDCT, chest, for lung cancer screening completed [address] [place] [address], [address], 07/07/2024 11:40:14 Procedure Notes None recorded. Medical Equipment None Reported. Allergies No known drug allergies Medications Name Sig Start Date Stop Date Status Note LastModified by Organization Details LastModified Time atorvastati n 40 mg tablet TAKE 1 TABLET BY MOUTH EVERY DAY AT BEDTIME active Not Available Not Available No t Available hydrocodone 7.5 mg-ibuprofe n 200 mg tablet [...] 50 mg tablet,exte nded release 24 hr TAKE 1 TABLET BY MOUTH EVERY DAY DIRECTED active Not Available Not Available No t Available lisinopril 20 mg tablet TAKE 1 TABLET [...] TAKE 1 TABLET BY MOUTH EVERY DAY NEEDED active Not Available Not Available No [...] Available Not Available lisinopril 40 mg tablet TAKE 1 TABLET BY MOUTH EVERY DAY DIRECTED active Not Available Not Available No t Available fluticasone propionate 50 mcg/actuati on nasal spray,suspe [...] Not Available varenicline tartrate 1 mg tablet TAKE 1 TABLET BY MOUTH TWICE DAILY AFTER FOOD active Not Available Not Available No t Available varenicline tartrate 0.5 mg tablet TAKE 1 TABLET BY MOUTH TWICE DAILY DIRECTED 07/07 completed Not Available Not Available Not Available hydrochloro thiazide 12.5 mg tablet Take [...] Not Available Not Available Not Available Fluvirin 3591-3502 (PF) 45 mcg(15 mcg x3)/0.5 mL intramuscul [...] Updated DateTime 4 160.02 cm 21.8 kg/m2 50466.5 6 g 97.9 [degF] 78 /min 16 /min 99 % 99 % Jono AMARAL [place] [employer] [facility] 4 15:27:13 Date Recorded Systolic blood pressure Diastolic blood pressure Provider Name and Address Organization Details Last Updated DateTime 10/15/2023 136 mm[Hg] 80 mm[Hg] Luis F Osborn MD [address], [place], [address], [employer] 10/15/2023 15:28:33 Date Recorded Body height Body mass index (BMI) Body weight Body temperature Heart rate Provider Name and Address Organization Details Last Updated DateTime 01/29/2024 160.02 cm 21.7 kg/m2 52635.67 g 97.9 [degF] 62 /min Clary Martin RN [employer] 4 11:58:25 Date Recorded Oxygen saturation Oxygen saturation in Arterial blood by Pulse oximetry Systolic blood pressure Diastolic blood pressure Provider Name and Address Organization Details Last Updated DateTime 01/29/2024 97 % 97 % 140 mm[Hg] 70 mm[Hg] Luis F Osborn MD [address], [place], [address], [employer] 12:07:58 Date Recorded Body height Body mass index (BMI) Body weight Body temperature Oxygen saturation Oxygen saturation in Arterial blood by Pulse oximetry Heart rate Provider Name and Address Organization Details Last Updated DateTime 5 160.02 cm 22.2 kg/m2 72579.1 g 96.9 [degF] 96 % 96 % 81 /min Clary Martin RN [employer] [facility] [employer] 5 11:59:31 Date Recorded Systolic blood pressure Diastolic blood pressure Provider Name and Address Organization Details Last Updated DateTime 04/30/2024 160 mm[Hg] 100 mm[Hg] Luis F Osborn MD [address], [place], [address], [employer] 04/30/2024 12:31:50 Date Recorded Body height Body mass index (BMI) Body weight Body temperature Oxygen saturation Oxygen saturation in Arterial blood by Pulse oximetry Heart rate Provider Name and Address Organization Details Last Updated DateTime 5 160.02 cm 22 kg/m2 97126.1 5 g 97.2 [degF] 97 % 97 % 60 /min Clary Martin RN [facility] [employer] [facility] 11:20:02 Date Recorded Systolic blood pressure Diastolic blood pressure Systolic blood pressure Diastolic blood pressure Provider Name and Address Organization Details Last Updated DateTime 06/16/2024 180 mm[Hg] 104 mm[Hg] 156 mm[Hg] 84 mm[Hg] Rima Osborn MD [address], [place], [address] [place] [employer] [facility] [employer] [facility] 11:46:13 Date Recorded Body height Body mass index (BMI) Body weight Body temperature Oxygen saturation Oxygen saturation in Arterial blood by Pulse oximetry Heart rate Provider Name and Address Organization Details Last Updated DateTime 160.02 cm 22.2 kg/m2 50410.4 g 96.8 [degF] 99 % 99 % 57 /min Clary Martin RN [facility] [employer] 11:37:24 Date Recorded Systolic blood pressure Diastolic blood pressure Provider Name and Address Organization Details Last Updated DateTime 07/07/2024 156 mm[Hg] 94 mm[Hg] Luis F Osborn MD [address], [place], [address] [employer] [facility] [employer] 07/07/2024 11:53:30 Social History Question Answer Notes LastModified by Organizat ion Details LastModified Time Tobacco Smoking Status Current Every Day Smoker Angelic sofia, [place] [employer] [facility] [employer] 08/30/2022 10:52:39 Do You Have An Advance Directive? Yes [id number] Information not available 05/30/2022 What Is Your Level Of Alcohol Consumption? None [id number] Information not available 05/30/2022 Are You Blind Or Do You Have Difficulty Seeing? No Wears 1 Contact In Right Eye Information not available 08/30/2022 What Is Your Level Of Caffeine Consumption? Heavy 6 Cups Of Coffee Per Day [email or web address] Information not available 06/16/2024 How Much Tobacco Do You Chew? None [id number] Information not available 05/30/2022 What Is Your Code Status? Full Code Information not available 08/30/2022 Are You Deaf Or Do You Have Serious Difficulty Hearing? No Information not available 08/30/2022 What Type Of Diet Are You Following? REGULAR [id number] Information not available 05/30/2022 Which Illicit Or Recreational Drugs Have You Used? None Information not available 08/30/2022 Do You Or Have You Ever Used E-cigarettes Or Vape? 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 Yes POA: Jose Martin Carrero Information not available 08/30/2022 What Was The Date Of Your Most Recent Tobacco Screening? 07/16/2023 Information not available 07/16/2023 What Is Your Current Pack Years? 30ormorepacky ears [email or web address] Information not available 06/16/2024 At What Age Did You Start Smoking Tobacco? 21 Information not available 08/30/2022 Do You Or Have You Ever Used Smokeless Tobacco? Former Smokeless Tobacco User [id number] Information not available 05/30/2022 How Much Tobacco Do You Smoke? 1 PPD Actually 3/4 Pack Of Day [email or web address] Information not available 06/16/2024 Do You Feel Stressed (tense, Restless, Nervous, Or Anxious, Or Unable To Sleep At Night)? [id number] Anxiety From Coming To [facility] Information not available 06/05/2023 Do You Use Any Illicit Or Recreational Drugs? No [email or web address] Information not available 06/16/2024 How Many Years Have You Smoked Tobacco? 50 [email or web address] Information not available 06/16/2024 Do You Have Any Dietary Restrictions? No Information not available 08/30/2022 Do You Or Have You Ever Used Any Other Forms Of Tobacco Or Nicotine? No [email or web address] Information not available 06/16/2024 How Many Years Have You Used Smokeless Tobacco? 1 Actually Only A Couple Months If That. [email or web address] Information not available 06/16/2024 Sex: Unknown Functional [...] 08/30/2022 What is your exercise level? Moderate [id number] Information not available 05/30/2022 Mental Status Question Answer Note LastModified by Organization D etails LastModified Time Do you have difficulty concentrating, remembering or making decisions? No Information no t available 08/30/2022 Family History Relationship Description Onset Age of this Age Resolved Age Notes LastModified by Organization Details LastModified Time Father Cardiopulmon sanchez bypass operation [id number] Not available 05/30/2022 05:53:25 Medical History Condition [...] Luis F Osborn MD [address], [address] [address], [place], [address], [employer] 01/30/2023 11:36:07 Influenza, high-dose, quadrivalent, PF 3 completed Luis F Osborn MD [address], [address], [place], [address], [employer] 01/30/2023 11:36:07 COVID-19, mRNA, LNP-S, PF, 50 mcg/0.5 mL 3 completed Luis F Osborn MD [address], [address], [place], [address], [employer] [facility] 01/30/2023 11:36:07 Influenza, split virus, trivalent, preservative 5 completed Luis F Osborn MD [address], [address], [place], [address], [employer] [facility] 01/30/2023 11:36:07 Influenza, split virus, quadrivalent, preservative 1 completed Luis F Osborn MD [address], [address], [place], [address], [employer] [facility] 01/30/2023 11:36:07 Influenza, split virus, quadrivalent, preservative 0 completed Luis F Osborn MD [address], [address], [place], [address], [employer] 01/30/2023 11:36:07 pneumococcal polysaccharide PPV23 0 completed Luis F Osborn MD [address], [address], [place], [address], [employer] [facility] 01/30/2023 11:36:07 Influenza, split virus, quadrivalent, preservative 9 completed Luis F Osborn MD [address], [address], [place], [address], [employer] 01/30/2023 11:36:07 Influenza, split virus, trivalent, preservative 4 completed Luis F Osborn MD [address], [address], [place], [address], [employer] 01/30/2023 11:36:07 Influenza, split virus, trivalent, preservative 3 completed Luis F Osborn MD [address], [address], [place], [address], [employer] 01/30/2023 11:36:07 Influenza, split virus, quadrivalent, PF 6 completed Luis F Osborn MD [address] [place] [address], [place], [address], [facility] 01/30/2023 11:36:07 Past Encounters Encounter ID Performer Location Encounter Start Date Encounter Closed Date Diagnosis/Indication Diagnosis SNOMED-CT Code Diagnosis ICD10 Code Diagnosis Note [id number] [facility] [place] [address] [place] [address] 10/11/2020 00:00:00 10/11/2020 08:54:36 [id number] [facility] [place] [facility] [place] [address] 03/01/2021 00:00:00 03/01/2021 13:51:35 [id number] [facility] [place] [facility] [place] [address] 04/25/2021 00:00:00 04/25/2021 09:53:29 [id number] [facility] [place] [facility] [place] [address] 09/18/2021 00:00:00 09/18/2021 10:18:58 [id number] [facility] [place] [facility] [place] [address] 11/23/2021 00:00:00 11/23/2021 10:19:13 [id number] [facility] [place] [facility] [place] [address] 02/01/2022 00:00:00 02/01/2022 14:21:51 [id number] [address] [place] [address] 05/28/2022 00:00:00 05/28/2022 10:21:44 [id number] Luis F Osborn MD [address] [address] 06/13/2022 10:28:57 06/13/2022 11:20:12 Hypertensive disorder 09518847 I10 Hyperlipidemia 61549805 E78.5 Smoker 28657454 F17.200 Anxiety disorder 06 F41.9 [id number] Luis F Osborn MD [address] [address] 07/12/2022 14:52:31 07/12/2022 15:19:10 Hypertensive disorder 73309648 I10 Smoker 85747294 F17.200 Anxiety disorder 06 F41.9 [id number] Luis F Osborn MD [address] [address] 08/30/2022 10:50:06 08/30/2022 11:14:43 Anxiety disorder F41.9 Hypertensive disorder 38 769519 I10 Smoker 75686580 F17.200 Hyperlipidemia 21216461 E78.5 Osteoporosis 71063730 M8 1.0 [id number] Luis F Osborn MD [address] [address] 01/30/2023 10:46:30 01/30/2023 11:59:38 Hyperlipidemia 69705673 E78.5 Hypertensive disorder 38 799128 I10 Anxiety disorder F41.9 Osteoporosis 89634414 M8 1.0 Smoker 59919187 F17.074 [id number] Luis F Osborn MD [address] [address] 02/27/2023 10:11:14 02/27/2023 10:33:17 Hyperlipidemia 77935265 E78.5 Hypertensive disorder 38 848237 I10 Anxiety disorder 06 F41.9 Osteoporosis 43044691 M8 1.0 Smoker 87369080 F17.725 [id number] Luis F Osborn MD [address] [address] 06/05/2023 12:16:03 06/05/2023 13:57:00 Hypertensive disorder 46956351 I10 Anxiety disorder 6958211 06 F41.9 Hyperlipidemia 51570730 E78.5 Osteoporosis 25299773 M8 1.0 Smoker 47587258 F17.200 Diabetes m ellitus screening 753796880 Z13.1 Vitamin D deficiency 347 01980 E55.9 [id number] Luis F Osborn MD [address] [address] 07/16/2023 15:18:51 07/16/2023 16:34:56 Screening for disorder 039555063 Z13.9 Hypertensive disorder 38 807746 I10 Anxiety disorder 3814448 06 F41.9 Hyperlipidemia 47857599 E78.5 Osteoporosis 45076746 M8 1.0 Smoker 69364448 F17.200 Vitamin D deficiency 347 56603 E55.9 Improved [id number] Luis F Osborn MD [address] [address] 10/15/2023 15:21:30 10/15/2023 15:53:19 Hypertensive disorder 04764986 I10 Anxiety disorder 1983591 06 F41.9 Hyperlipidemia 62960179 E78.5 Osteoporosis 41225471 M8 1.0 Smoker 80977917 F17.200 Vitamin D deficiency 347 47917 E55.9 Improved Pulmonary emphysema 8743 3001 J43.9 [id number] Luis F Osborn MD [address] [address] 01/29/2024 11:48:28 01/29/2024 13:00:14 Anxiety disorder 112644752 F41.9 Hyperlipidemia 68514043 E78.5 Hypertensive disorder 38 543085 I10 Osteoporosis 23265228 M8 1.0 Smoker 18001587 F17.200 Vitamin D deficiency 347 29583 E55.9 Improved Pulmonary emphysema 8743 3001 J43.9 [id number] Luis F Osborn MD [address] [address] 04/30/2024 11:50:37 04/30/2024 12:22:27 Anxiety disorder 078506471 F41.9 Hyperlipidemia 59095683 E78.5 Hypertensive disorder 38 442917 I10 Osteoporosis 30239223 M8 1.0 Vitamin D deficiency 347 57997 E55.9 Improved Smoker 16102181 F17.200 Pulmonary emphysema 8743 3001 J43.9 [id number] Luis F Osborn MD [address] [address] 06/16/2024 11:01:12 06/16/2024 12:23:02 Anxiety disorder 943647134 F41.9 Hyperlipidemia 38528074 E78.5 Hypertensive disorder 38 683818 I10 Osteoporosis 08543608 M8 1.0 Vitamin D deficiency 347 08321 E55.9 Improved Pulmonary emphysema 8743 3001 J43.9 Cigarette smoker 7766185 7 F17.210 Screening mammography 24 876043 Z12.31 [id number] Luis F Osborn MD [address] [address] 07/07/2024 11:23:00 07/07/2024 11:53:54 Hypertensive disorder 86340499 I10 Hyperlipidemia 34486502 E78.5 Anxiety disorder 6713349 06 F41.9 Osteoporosis 50681119 M8 1.0 Vitamin D deficiency 347 72982 E55.9 Improved Pulmonary emphysema 8743 3001 J43.9 Cigarette smoker 5636632 7 F17.210 Microscopic hematuria 19 5293031 R31.29 Kidney stone 93076651 N2 0.0 B/L Health Concerns Section Related Observation LastModified by Organization Detai ls LastModified Time None Recorded Concern Status LastModified by Organization Details LastModified Time None Recorded Advance Directives Directive Y: Payers Encounter Date Sequence Insurance Name Policy Number Policy Aguero Covered Member ID Aguero Member ID Guarantor Name 10/15/2023 1 [place] Cherri Lopez [id number] 3 Cherri Lopez 10/15/2023 2 [facility] OPEN ACCESS PL[facility] [id number] Cherri Lopez [id number] Cherri Lopez 01/29/2024 1 [place] Cherri Lopez [id number] Cherri Lopez 01/29/2024 2 [employer] - OPEN ACCESS PLUS [id number] Cherri Lopez [id number] Cherri Lopez 04/30/2024 1 [place] Cherri Lopez [id number] Cherri Lopez 04/30/2024 2 [employer] - OPEN ACCESS PLUS [id number] Cherri Lopez [id number] Cherri Chávez Jessica 06/16/2024 1 [place] Cherri Chávez Jessica [id number] 3 Cherri Chávez Jessica 06/16/2024 2 [employer] - OPEN ACCESS PLUS [id number] Cherri Lopez [id number] 01 Cherri Lopez 07/07/2024 1 [place] Cherri Lopez [id number] 3 Cherri Chávez Jessica 07/07/2024 2 [employer] - OPEN ACCESS PLUS [id number] Cherri Lopez [id number] Cherri Lopez Notes Date Note Type Note Provider Name and Address Organization Details Recorded Time 10/15/2023 text/html Pt is here for f/u [...] a counsellor yet. Luis F Osborn MD [address] [place] [address], [address], [place] [facility] [employer] 10/15/2023 15:50:01 01/29/2024 text/html Pt is here [...] Pulmo yet. Luis F Osborn MD [address], [place], [address], [employer] [facility] [employer] 01/29/2024 12:42:47 04/30/2024 text/html Pt is here [...] Pulmo yet. Luis F Osborn MD [address], [address], [place], [address], [employer] [facility] [employer] 04/30/2024 12:33:35 06/16/2024 text/html Pt is here [...] Pulmo yet. Luis F Osborn MD [address], [place], [address], [employer] [facility] [employer] 06/16/2024 11:51:31 07/07/2024 text/html Pt is here for f/u on her annual labs. Doing overall better. Denies any problem with [...] seen Pulmo yet. Luis F Osborn MD [address] [place] [address], [place], [address], [place] [facility] 07/07/2024 11:57:43 OBGyn Episode No OBEpisode recorded.
--- OUTSIDE RECORDS SUMMARY | 2024-07-24 09:39 | XMS_ITS | Clinical Summary ---
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
--- OUTSIDE RECORDS SUMMARY | 2024-07-24 09:39 | XMS_ITS | Encounter Summary ---
Author Organization [facility] Address 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 Gender Identity Not on file Sexual [...] PM CDT Narrative 01/19/2008 2:50 PM CDT [id number] [place], [place] [address] Admit Date: 01/16/2008 CHERRI KWOK Sex: F Admit Prov: ANEL, GUMARO Date: 1955 Primary Care Prov: GUMARO TELLO CMRN: [id number] Room: [facility] SSN: [id number] IMAGING SERVICES Ordering Prov: GUMARO TELLO Accession Number: [id number] Interpretation BILATERAL SCREENING MAMMOGRAM 01/16/2008 Reason for [...] Procedure Note Reg Gilmore MD - 01/19/2008 [facility] [address] [place], [place] [address] Admit Date: 01/16/2008 CHERRI KWOK Sex: F Admit Prov: GUMARO TELLO Date:1955 Primary Care Prov: NALLELY TELLOORES CMRN: [id number] Room: [facility] SSN: [id number] IMAGING SERVICES Ordering Prov: GUMARO TELLO Interpretation BILATERAL SCREENING MAMMOGRAM 01/16/2008 Reason [...] mammogram documented in this encounter Care Teams Seed Cone Picker Relationship Specialty Start Date End Date Gumaro Tello MD [address] [address] PCP - General 03/18/15 documented as of this encounter
--- OUTSIDE RECORDS SUMMARY | 2024-07-24 09:39 | XMS_ITS | Encounter Summary ---
Author Organization [facility] Address 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
== END 2024-07-24 09:27 | disposition home or self-care (01) ==
PROVIDERS: PCP Family Medicine; Visit Provider Urology
DX: N20.0 Calculus of kidney (principal)
CPT/HCPCS: 74018

== ENCOUNTER 2024-11-18 15:11 | Outpatient (CLI) | payer MEDICARE, OTHER, SELFPAY ==
--- NOTE | ~2024-11-18 | MM_ITS ---
EXAMINATION: MM screening [facility] BI w berenice HISTORY: Screening mammogram TECHNIQUE: Craniocaudal and mediolateral oblique 3-D tomosynthesis images were obtained and synthetic 2-D images were generated. CAD analysis was submitted and interpreted. COMPARISON: 03/07/2023, 11/13/2021, 10/18/2020 BREAST PARENCHYMAL COMPOSITION:Not Dense. There are scattered areas of fibroglandular density. FINDINGS: No suspicious mass, calcification, or architectural distortion are identified in either breast to suggest malignancy. There has been no suspicious interval change. IMPRESSION: No mammographic evidence of malignancy. Recommend routine screening mammography in one year. BI-RADS Category 1: Negative Reviewed, dictated and finalized at location .
--- OUTSIDE RECORDS SUMMARY | 2024-11-18 15:41 | XMS_ITS | Encounter Summary ---
Author Organization [facility] Address 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
--- OUTSIDE RECORDS SUMMARY | 2024-11-18 15:41 | XMS_ITS | Encounter Summary ---
Author Organization [facility] [employer] [facility] Address 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 [facility] [address] [place] [phone] PCP - General 03/18/15 documented as of this encounter
--- OUTSIDE RECORDS SUMMARY | 2024-11-18 15:41 | XMS_ITS | Encounter Summary ---
Author Organization [facility] Address 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 Gender Identity Not on file Sexual [...] PM CDT Narrative 01/19/2008 2:50 PM CDT [facility] [address] [place], [place] [address] Admit Date: 01/16/2008 CHERRI KWOK Sex: F Admit Prov: ANEL, GUMARO Date: 1955 Primary Care Prov: GUMARO TELLO CMRN: [id number] Room: [facility] SSN: [id number] IMAGING SERVICES Ordering Prov: GUMARO TELLO Accession Number: [id number] Interpretation BILATERAL SCREENING MAMMOGRAM 01/16/2008 Reason for [...] Procedure Note Reg Gilmore MD - 01/19/2008 [facility] [address] [place], [place] [address] Admit Date: 01/16/2008 CHERRI KWOK Sex: F Admit Prov: GUMARO TELLO Date:1955 Primary Care Prov: NALLELY TELLOORES CMRN: [id number] Room: [facility] SSN: [id number] IMAGING SERVICES Ordering Prov: GUMARO TELLO Interpretation [...] mammogram documented in this encounter Care Teams Ad Clerk Relationship Specialty Start Date End Date Gumaro Tello MD [address] [address] PCP - General 03/18/15 documented as of this encounter
--- OUTSIDE RECORDS SUMMARY | 2024-11-18 15:41 | XMS_ITS | Encounter Summary ---
Author Organization [facility] Address 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
--- OUTSIDE RECORDS SUMMARY | 2024-11-18 15:41 | XMS_ITS | Clinical Summary ---
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
--- OUTSIDE RECORDS SUMMARY | 2024-11-18 15:41 | XMS_ITS | Encounter Summary ---
Author Organization [facility] Address 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
== END 2024-11-18 15:12 | disposition home or self-care (01) ==
LOC: ANHFOHIMG 15:13
PROVIDERS: PCP Family Medicine; Visit Provider Family Medicine
DX: Z12.31 Encounter for screening mammogram for malignant neoplasm of breast (principal)
CPT/HCPCS: 77063; 77067